=== PATIENT | female | born 1955 | race Caucasian/White ===

== ENCOUNTER → 2017-05-06 07:24 | Outpatient (CLI) | payer BC, SELFPAY ==
[2017-05-06 10:22] LABS: Absolute Lymphocyte Count 1.35 X10^3/ul (0.83-4.51); Absolute Neutrophil Count 1.5 X10^3/uL (2.0-7.7); Basophil# 0.05 X10^3/uL; Basophil% 1.5 % (0-1); Eosinophil# 0.16 X10^3/uL; Eosinophils% 4.8 % (0-5); Hematocrit 44.5 % (37-47); Hemoglobin 15.1 g/dl (12.0-15.0); Lymphocyte # 1.35 X10^3/ul (4.0); Lymphocyte % 40.5 % (19-41); Mean Corp Hgb Conc 33.9 g/gl (32-36); Mean Corpuscular Hgb 29.5 pg (27.0-32.0); Mean Corpuscular Volume 87.1 fL (81-99); Mean Platelet Vol. 10.3 fl (6.2-12.0); Monocyte# 0.27 X10^3/uL; Monocyte% 8.1 % (0-10); Neutrophil # 1.49 X10^3/uL (2.7-7.7); Neutrophil % 44.8 % (47-70); Platelet Count 262 K/mm3 (150-450); RBC Distribution Width CV 12.7 % (11.6-14.6); RBC Distribution Width SD 39.4 fl (35.1-43.9); Red Blood Count 5.11 M/mm3 (4.2-5.4); White Blood Count 3.3 K/mm3 (4.4-11.0)
[2017-05-06 10:23] LABS: POSITIVE COUNT NO; POSITIVE DIFFERENTIAL NO; POSITIVE MORPHOLOGY NO
[2017-05-06 11:13] LABS: Albumin, Serum 3.6 g/dL (3.2-5.0); BUN 8 mg/dL (7-18); BUN/Creat Ratio 10.6 RATIO (10-20); Creatinine, Serum 0.75 mg/dL (0.55-1.02); EST Glomerular Filtration Rate 83 mL/min (>60); Est Glom Filt Rate - Afr Amer 101 mL/min (>60); Glucose 80 mg/dL (74-106); Protein, Total 6.9 g/dL (6.4-8.2)
[2017-05-06 11:14] LABS: ALB/GLOB Ratio 1.1 RATIO (0.9-2.4); AST(SGOT) 17 U/L (15-37); Alanine Aminotransfer ALT/SGPT 27 U/L (13-56); Alkaline Phosphatase 104 U/L (45-117); Anion Gap 6 (5-15); Calcium,Total 8.6 mg/dL (8.5-10.1); Chloride 103 mmol/L (98-107); Cholesterol 181 mg/dL (200); Globulin 3.3 g/dL (2.2-4.2); High Density Lipoprotein 62 mg/dL; Potassium 3.8 mmol/L (3.5-5.1); Sodium Level 139 mmol/L (136-145); T4 Free Direct 0.95 ng/dL (0.76-1.46); Thyroid Stim Hormone (TSH) 1.98 uIU/mL (0.358-3.74); Triglycerides 84 mg/dL; Very Low Density Lipoprotein 17 mg/dL (5-40)
== END ==
PROVIDERS: Family Provider Family Medicine; PCP Family Medicine; Visit Provider Family Medicine
DX: R06.00 Dyspnea, unspecified (principal); Z13.220 Encounter for screening for lipoid disorders
CPT/HCPCS: 36415; 80053; 80061; 83880; 84439; 84443; 85025

== ENCOUNTER → 2017-09-12 12:03 | Outpatient (CLI) | payer BC, SELFPAY ==
[2017-09-12 14:23] LABS: Estradiol 16.2 pg/mL
[2017-09-12 14:26] LABS: Progesterone Level 0.24 ng/mL (See Comment); Vitamin D,25 Hydroxy 52.2 ng/mL (29.95-100.01)
== END ==
PROVIDERS: Family Provider Family Medicine; PCP Family Medicine
DX: E55.9 Vitamin D deficiency, unspecified (principal); N95.1 Menopausal and female climacteric states
CPT/HCPCS: 36415; 82306; 82670; 84144; 84403

== ENCOUNTER → 2018-01-26 11:54 | Outpatient (CLI) | payer BC, SELFPAY ==
[2018-01-26 14:19] LABS: Progesterone Level 2.11 ng/mL (See Comment); Vitamin D,25 Hydroxy 80.4 ng/mL (29.95-100.01)
[2018-01-26 14:24] LABS: Estradiol 54.6 pg/mL
== END ==
PROVIDERS: Family Provider Family Medicine; PCP Family Medicine; Referring Provider Specialist; Visit Provider Specialist
DX: N95.1 Menopausal and female climacteric states (principal); E55.9 Vitamin D deficiency, unspecified
CPT/HCPCS: 36415; 82306; 82670; 84144; 84403

== ENCOUNTER → 2018-03-13 12:50 | Outpatient (CLI) | payer BC, SELFPAY ==
[2014-01-24 07:48] VITALS: BMI 23.6
[2018-03-13 14:54] LABS: Free T3 2.1 pg/mL (2.18-3.98); Thyroid Stim Hormone (TSH) 1.23 uIU/mL (0.358-3.74)
== END ==
PROVIDERS: Family Provider Family Medicine; PCP Family Medicine
DX: E02 Subclinical iodine-deficiency hypothyroidism (principal)
CPT/HCPCS: 36415; 84443; 84481

== ENCOUNTER → 2018-09-23 | Outpatient (CLI) | payer BC, SELFPAY ==
--- NOTE | 2018-09-23 13:07 | BI_ITS ---
MAMMOGRAPHY - BILATERAL SCREENING REASON FOR EXAM: Female, 63 years old. Routine annual screening examination. PERTINENT HISTORY: Non-contributory. TECHNIQUE: Digital bilateral breast holland (3D mammographic acquisition) in the CC and MLO projections. 2-D mediolateral oblique (MLO) and craniocaudad (CC) views of both breasts were obtained. CAD: Full Field Digital Mammography with Computer Added Detection was performed. COMPARISON: Comparison is made with prior outside examination dated September 05, 2017. FINDINGS: Breast Composition: The breasts are heterogeneously dense, which may obscure small masses. There are no dominant masses or suspicious calcifications. Stable benign-appearing bilateral axillary lymph nodes. No other significant abnormalities are identified. There has been no significant change since the prior study. BI/SCREEN MAMM (CAD) W/HOLLAND BILAT IMPRESSION: Stable bilateral screening mammogram. Yearly follow-up mammogram recommended. (A) ASSESSMENT CATEGORY: BIRADS Category 1: Negative. A letter regarding these results will be sent to the patient by the facility within 30 days. Approximately 10% of breast cancers are not detected by mammography. A normal mammogram should not delay biopsy of a clinically suspicious abnormality. [id number] Electronically Signed: Vin Lucas, at 13:57 EDT , Service support ,
== END | disposition home or self-care (01) ==
LOC: OPBI 13:04
PROVIDERS: Family Provider Family Medicine; PCP Family Medicine; Referring Provider Specialist; Visit Provider Specialist
DX: Z12.31 Encounter for screening mammogram for malignant neoplasm of breast (principal)
CPT/HCPCS: 77063; 77067

== ENCOUNTER → 2018-11-19 | Outpatient (CLI) | payer BC, SELFPAY ==
[2018-11-19 12:18] LABS: Absolute Lymphocyte Count 1.24 X10^3/uL (0.83-4.51); Absolute Neutrophil Count 2.1 X10^3/uL (2.0-7.7); Basophil# 0.04 X10^3/uL; Eosinophil# 0.15 X10^3/uL; Eosinophils% 3.9 % (0-5); Hematocrit 43.3 % (37-47); Hemoglobin 14.2 g/dL (12.0-15.0); Lymphocyte # 1.24 X10^3/ul (4.0); Lymphocyte % 31.9 % (19-41); Mean Corp Hgb Conc 32.8 g/dL (32-36); Mean Corpuscular Hgb 28.9 pg (27.0-32.0); Mean Platelet Vol. 9.6 fl (6.2-12.0); Monocyte# 0.34 X10^3/uL; Monocyte% 8.7 % (0-10); NRBC Flagged by Analyzer 0 % (0-5); Neutrophil # 2.12 X10^3/uL (2.7-7.7); Neutrophil % 54.5 % (47-70); Platelet Count 267 K/mm3 (150-450); RBC Distribution Width CV 12.5 % (11.6-14.6); RBC Distribution Width SD 40.4 fl (35.1-43.9); Red Blood Count 4.92 M/mm3 (4.2-5.4); White Blood Count 3.9 K/mm3 (4.4-11.0)
[2018-11-19 12:47] LABS: Vitamin D,25 Hydroxy 43.7 ng/mL (29.95-100.01)
[2018-11-19 12:57] LABS: Thyroid Stim Hormone (TSH) 1.45 uIU/mL (0.358-3.74)
== END | disposition home or self-care (01) ==
LOC: BFHLAB 10:32
PROVIDERS: Family Provider Family Medicine; PCP Family Medicine; Visit Provider Family Medicine
DX: E03.9 Hypothyroidism, unspecified (principal); E55.9 Vitamin D deficiency, unspecified; F43.20 Adjustment disorder, unspecified; R53.83 Other fatigue
CPT/HCPCS: 36415; 82306; 84443; 85025

== ENCOUNTER → 2019-09-30 17:45 | Outpatient (CLI) | payer BC, SELFPAY | PROVIDERS: PCP Family Medicine; Referring Provider Family Medicine; Visit Provider Family Medicine | DX: Z20.828 Contact with and (suspected) exposure to other viral communicable diseases (principal) | CPT/HCPCS: 87635; G2023; U0003 ==

== ENCOUNTER → 2019-11-15 15:59 | Outpatient (CLI) | payer BC, SELFPAY ==
[2014-01-24 07:48] VITALS: BMI 23.6
--- NOTE | 2019-11-15 16:02 | BI_ITS ---
MAMMOGRAPHY - BILATERAL SCREENING REASON FOR EXAM: Female, 64 years old. Routine annual screening examination. PERTINENT HISTORY: Non-contributory. TECHNIQUE: Digital bilateral breast holland (3D mammographic acquisition) in the CC and MLO projections. 2-D mediolateral oblique (MLO) and craniocaudad (CC) views of both breasts were obtained. CAD: Full Field Digital Mammography with Computer Added Detection was performed. COMPARISON: Comparison is made with prior examination dated 09/23/2018. FINDINGS: Breast Composition: The breasts are heterogeneously dense, which may obscure small masses. There are no dominant masses or suspicious calcifications. Stable small benign appearing bilateral axillary lymph nodes. No other significant abnormalities are identified. There has been no significant change since the prior study. BI/SCREEN MAMM (CAD) W/HOLLAND BILAT IMPRESSION: Stable bilateral screening mammogram. Yearly follow-up mammogram recommended. (A) ASSESSMENT CATEGORY: BIRADS Category 2: Benign. A letter regarding these results will be sent to the patient by the facility within 30 days. Approximately 10% of breast cancers are not detected by mammography. A normal mammogram should not delay biopsy of a clinically suspicious abnormality. [id number] Electronically Signed: Vin Lucas, at 8:20 EDT , Service support ,
== END ==
PROVIDERS: PCP Family Medicine; Referring Provider Specialist; Visit Provider Specialist
DX: Z12.31 Encounter for screening mammogram for malignant neoplasm of breast (principal)
CPT/HCPCS: 77063; 77067

== ENCOUNTER → 2021-03-05 14:11 | Outpatient (CLI) | payer MEDICARE, SELFPAY | PROVIDERS: PCP Family Medicine; Referring Provider Specialist; Visit Provider Specialist | DX: Z12.31 Encounter for screening mammogram for malignant neoplasm of breast (principal) ==

== ENCOUNTER → 2021-03-19 14:12 | Outpatient (CLI) | payer MEDICARE, SELFPAY ==
--- NOTE | 2021-03-19 14:14 | BI_ITS ---
MAMMOGRAPHY - BILATERAL SCREENING 3-D TOMOSYNTHESIS REASON FOR EXAM: Female, 66 years old. SCREENING PERTINENT HISTORY: No significant family history. TECHNIQUE: 2-D mammograms and 3-D Tomosynthesis of the breast (s) were performed. CAD was performed. COMPARISON: 11/15/2019 FINDINGS: The breast composition is heterogeneously dense that can obscure small breast masses. Scattered benign calcifications are seen. No dense spiculated masses or suspicious microcalcifications are identified. No architectural distortion is identified. There is no skin thickening or retraction. There has been no significant change since the prior study. BI/SCRN MAMM (CAD)W/HOLLAND BILAT IMPRESSION: No mammographic signs of malignancy. Routine yearly mammograms recommended. ASSESSMENT CATEGORY: BIRADS Category 1: Negative. A letter regarding these results will be sent to the patient by the facility within 30 days. FOLLOW UP RECOMMENDATION: Yearly follow up mammogram recommended. (A) Approximately 10% of breast cancers are not detected by mammography. A normal mammogram should not delay biopsy of a clinically suspicious abnormality. Electronically Signed: Travis Gonzalez MD at 15:04 EST Tel , Service support ,
== END ==
PROVIDERS: PCP Family Medicine; Referring Provider Specialist; Visit Provider Specialist
DX: Z12.31 Encounter for screening mammogram for malignant neoplasm of breast (principal)
CPT/HCPCS: 77063; 77067

== ENCOUNTER → 2021-09-18 | Outpatient (CLI) | payer MEDICARE, SELFPAY ==
[2021-09-18 18:38] LABS: ALB/GLOB Ratio 1.2 RATIO (0.9-2.4); AST(SGOT) 15 U/L (15-37); Alanine Aminotransfer ALT/SGPT 17 U/L (13-56); Albumin, Serum 3.7 g/dL (3.2-5.0); Alkaline Phosphatase 96 U/L (45-117); Anion Gap 7 (5-15); BUN 6 mg/dL (7-18); BUN/Creat Ratio 7.3 RATIO (10-20); CRP < 2.90 mg/L (0.0-3.0); Chloride 101 mmol/L (98-107); Creatinine, Serum 0.82 mg/dL (0.55-1.02); EST Glomerular Filtration Rate 74 mL/min (>60); Est Glom Filt Rate - Afr Amer 90 mL/min (>60); Globulin 3.1 g/dL (2.2-4.2); Glucose 85 mg/dL (74-106); Potassium 3.4 mmol/L (3.5-5.1); Protein, Total 6.8 g/dL (6.4-8.2); Sodium Level 137 mmol/L (136-145)
[2021-09-18 19:14] LABS: Erythrocyte Sedimentation Rate 5 mm/hr (0-30)
[2021-09-20 18:08] LABS: Endomysial Antibody IgA Negative (Negative)
[2021-09-21 10:04] LABS: Immunoglobulin A 177 mg/dL (87-352); t-Transglutaminase IgA <2 U/mL (0-3)
== END | disposition home or self-care (01) ==
LOC: MTLAB 15:45
PROVIDERS: PCP Family Medicine; Referring Provider Internal Medicine Gastroenterology; Visit Provider Internal Medicine Gastroenterology
DX: R19.7 Diarrhea, unspecified (principal)
CPT/HCPCS: 36415; 80053; 82784; 83516; 85652; 86140; 86255

== ENCOUNTER → 2021-09-19 | Outpatient (CLI) | payer MEDICARE, SELFPAY ==
[2021-09-26 09:34] LABS: Calprotectin, Stool 57 ug/g (0-120)
== END | disposition home or self-care (01) ==
LOC: LABSPEC 13:30
PROVIDERS: PCP Family Medicine; Referring Provider Internal Medicine Gastroenterology; Visit Provider Internal Medicine Gastroenterology
DX: R19.7 Diarrhea, unspecified (principal)
CPT/HCPCS: 83993

== ENCOUNTER → 2022-03-06 | Outpatient (CLI) | payer MEDICARE, SELFPAY ==
--- NOTE | 2022-03-06 12:19 | BI_ITS ---
MAMMOGRAPHY - BILATERAL SCREENING REASON FOR EXAM: Female, 67 years old. Routine annual screening examination. PERTINENT HISTORY: Non-contributory. TECHNIQUE: Digital bilateral breast holland (3D mammographic acquisition) in the CC and MLO projections. 2-D mediolateral oblique (MLO) and craniocaudad (CC) views of both breasts were obtained. CAD: Full Field Digital Mammography with Computer Added Detection was performed. COMPARISON: Comparison is made with prior study 03/19/2021 and 11/15/2019. FINDINGS: Breast Composition: The breasts are heterogeneously dense, which may obscure small masses. There are no dominant masses or suspicious calcifications. No other significant abnormalities are identified. There has been no significant change since the prior study. BI/SCRN MAMM (CAD)W/HOLLAND BILAT IMPRESSION: Stable bilateral screening mammogram. Yearly follow-up mammogram recommended. (A) ASSESSMENT CATEGORY: BIRADS Category 1: Negative. A letter regarding these results will be sent to the patient by the facility within 30 days. Approximately 10% of breast cancers are not detected by mammography. A normal mammogram should not delay biopsy of a clinically suspicious abnormality. [id number] Electronically Signed: Vin Lucas MD at 13:17 EST ,
== END | disposition home or self-care (01) ==
LOC: OPBI 12:18
PROVIDERS: PCP Family Medicine; Visit Provider Nurse Practitioner Women's Health
DX: Z12.31 Encounter for screening mammogram for malignant neoplasm of breast (principal)
CPT/HCPCS: 77063; 77067

== ENCOUNTER → 2022-09-06 | Outpatient (CLI) | payer MEDICARE, SELFPAY ==
[2022-09-06 10:09] LABS: Absolute Lymphocyte Count 1.45 X10^3/uL (0.83-4.51); Basophil# 0.05 X10^3/uL; Basophil% 1.2 % (0-1); Hematocrit 46.7 % (37-47); Hemoglobin 15.8 g/dL (12.0-15.0); Lymphocyte # 1.45 X10^3/ul (0.83-4.51); Lymphocyte % 36.2 % (19-41); Mean Corp Hgb Conc 33.8 g/dL (32-36); Mean Corpuscular Hgb 29.8 pg (27.0-32.0); Mean Corpuscular Volume 88.1 fL (81-99); Mean Platelet Vol. 9.2 fl (6.2-12.0); Monocyte# 0.32 X10^3/uL; NRBC Flagged by Analyzer 0 % (0-5); Neutrophil # 1.99 X10^3/uL (2.7-7.7); Neutrophil % 49.6 % (47-70); Platelet Count 334 K/mm3 (150-450); RBC Distribution Width CV 11.9 % (11.6-14.6); RBC Distribution Width SD 38.3 fl (35.1-43.9)
[2022-09-06 10:32] LABS: ALB/GLOB Ratio 1.2 RATIO (0.9-2.4); AST(SGOT) 18 U/L (15-37); Alanine Aminotransfer ALT/SGPT 24 U/L (13-56); Alkaline Phosphatase 103 U/L (45-117); Anion Gap 10 (5-15); BUN 9 mg/dL (7-18); BUN/Creat Ratio 10.8 RATIO (10-20); Calcium,Total 9.4 mg/dL (8.5-10.1); Chloride 95 mmol/L (98-107); Cholesterol 209 mg/dL (200); Creatinine, Serum 0.83 mg/dL (0.55-1.02); EST Glomerular Filtration Rate 73 mL/min (>60); Est Glom Filt Rate - Afr Amer 88 mL/min (>60); Globulin 3.4 g/dL (2.2-4.2); Glucose 81 mg/dL (74-106); High Density Lipoprotein 65 mg/dL; Potassium 3.7 mmol/L (3.5-5.1); Protein, Total 7.4 g/dL (6.4-8.2); Sodium Level 133 mmol/L (136-145); Triglycerides 167 mg/dL; Very Low Density Lipoprotein 33 mg/dL (5-40)
[2022-09-06 10:56] LABS: Vitamin D,25 Hydroxy 46.9 ng/mL
== END | disposition home or self-care (01) ==
LOC: MTLAB 07:14
PROVIDERS: PCP Nurse Practitioner Family; Referring Provider Nurse Practitioner Family; Visit Provider Nurse Practitioner Family
DX: Z00.00 Encounter for general adult medical examination without abnormal findings (principal); I10 Essential (primary) hypertension; E55.9 Vitamin D deficiency, unspecified; E78.5 Hyperlipidemia, unspecified
CPT/HCPCS: 36415; 80053; 80061; 82306; 85025

== ENCOUNTER → 2023-02-25 | Outpatient (CLI) | payer MEDICARE, SELFPAY ==
--- NOTE | 2023-02-25 14:44 | BI_ITS ---
MAMMOGRAPHY - BILATERAL SCREENING REASON FOR EXAM: Female, 68 years old. Routine annual screening examination. PERTINENT HISTORY: Non-contributory. TECHNIQUE: Digital bilateral breast holland (3D mammographic acquisition) in the CC and MLO projections. 2-D mediolateral oblique (MLO) and craniocaudad (CC) views of both breasts were obtained. CAD: Full Field Digital Mammography with Computer Added Detection was performed. COMPARISON: Comparison is made with prior study dated March 06, 2022 and March 19, 2021 FINDINGS: Breast Composition: The breasts are heterogeneously dense, which may obscure small masses. There are no dominant masses or suspicious calcifications. No other significant abnormalities are identified. There has been no significant change since the prior study. BI/SCRN MAMM (CAD)W/HOLLAND BILAT IMPRESSION: Stable bilateral screening mammogram. Yearly follow-up mammogram recommended. (A) ASSESSMENT CATEGORY: BIRADS Category 1: Negative. A letter regarding these results will be sent to the patient by the facility within 30 days. Approximately 10% of breast cancers are not detected by mammography. A normal mammogram should not delay biopsy of a clinically suspicious abnormality. [id number] Electronically Signed: Vin Lucas MD at 15:40 EST ,
== END | disposition home or self-care (01) ==
LOC: OPBI 14:43
PROVIDERS: PCP Nurse Practitioner Family; Referring Provider Nurse Practitioner Women's Health; Visit Provider Nurse Practitioner Women's Health
DX: Z12.31 Encounter for screening mammogram for malignant neoplasm of breast (principal)
CPT/HCPCS: 77063; 77067

== ENCOUNTER → 2023-07-30 | Outpatient (CLI) | payer MEDICARE, SELFPAY ==
[2023-07-30 10:23] LABS: Absolute Lymphocyte Count 1.48 X10^3/uL (0.83-4.51); Basophil# 0.04 X10^3/uL; Eosinophil# 0.16 X10^3/uL; Hematocrit 40.9 % (37-47); Hemoglobin 14.1 g/dL (12.0-15.0); Lymphocyte # 1.48 X10^3/ul (0.83-4.51); Lymphocyte % 36.8 % (19-41); Mean Corp Hgb Conc 34.5 g/dL (32-36); Mean Corpuscular Hgb 29.4 pg (27.0-32.0); Mean Corpuscular Volume 85.4 fL (81-99); Mean Platelet Vol. 9.4 fl (6.2-12.0); Monocyte# 0.38 X10^3/uL; Monocyte% 9.5 % (0-10); NRBC Flagged by Analyzer 0 % (0-5); Neutrophil # 1.96 X10^3/uL (2.7-7.7); Neutrophil % 48.7 % (47-70); Platelet Count 382 K/mm3 (150-450); RBC Distribution Width CV 11.7 % (11.6-14.6); RBC Distribution Width SD 36.6 fl (35.1-43.9); Red Blood Count 4.79 M/mm3 (4.2-5.4)
[2023-07-30 11:29] LABS: ALB/GLOB Ratio 1.2 RATIO (0.9-2.4); AST(SGOT) 23 U/L (15-37); Alanine Aminotransfer ALT/SGPT 36 U/L (13-56); Albumin, Serum 3.7 g/dL (3.2-5.0); Alkaline Phosphatase 90 U/L (45-117); Anion Gap 8 (5-15); BUN 7 mg/dL (7-18); BUN/Creat Ratio 8.2 RATIO (10-20); Chloride 95 mmol/L (98-107); Cholesterol 153 mg/dL (200); Creatinine, Serum 0.86 mg/dL (0.55-1.02); EST Glomerular Filtration Rate 70 mL/min (>60); Est Glom Filt Rate - Afr Amer 85 mL/min (>60); Globulin 3.1 g/dL (2.2-4.2); Glucose 88 mg/dL (74-106); High Density Lipoprotein 47 mg/dL; Potassium 3.4 mmol/L (3.5-5.1); Protein, Total 6.8 g/dL (6.4-8.2); Sodium Level 133 mmol/L (136-145); Triglycerides 101 mg/dL; Very Low Density Lipoprotein 20 mg/dL (5-40)
== END | disposition home or self-care (01) ==
LOC: MTLAB 07:52
PROVIDERS: PCP Nurse Practitioner Family; Referring Provider Nurse Practitioner Family; Visit Provider Nurse Practitioner Family
DX: I10 Essential (primary) hypertension (principal); E55.9 Vitamin D deficiency, unspecified; E78.5 Hyperlipidemia, unspecified
CPT/HCPCS: 36415; 80053; 80061; 82306; 85025

== ENCOUNTER → 2024-03-01 | Outpatient (CLI) | payer MEDICARE, SELFPAY ==
--- NOTE | 2024-03-01 12:13 | BI_ITS ---
MAMMOGRAPHY - BILATERAL SCREENING REASON FOR EXAM: Female, 69 years old. Routine annual screening examination. PERTINENT HISTORY: Non-contributory. TECHNIQUE: Digital bilateral breast holland (3D mammographic acquisition) in the CC and MLO projections. 2-D mediolateral oblique (MLO) and craniocaudad (CC) views of both breasts were obtained. CAD: Full Field Digital Mammography with Computer Added Detection was performed. COMPARISON: Comparison is made with prior study dated February 25, 2023 and March 06, 2022. FINDINGS: Breast Composition: The breasts are heterogeneously dense, which may obscure small masses. There are no dominant masses or suspicious calcifications. No other significant abnormalities are identified. There has been no significant change since the prior study. BI/SCRN MAMM (CAD)W/HOLLAND BILAT IMPRESSION: Stable bilateral screening mammogram. Yearly follow-up mammogram recommended. (A) ASSESSMENT CATEGORY: BIRADS Category 1: Negative. A letter regarding these results will be sent to the patient by the facility within 30 days. Approximately 10% of breast cancers are not detected by mammography. A normal mammogram should not delay biopsy of a clinically suspicious abnormality. [id number] Electronically Signed: Vin Lucas MD at 13:28 EST ,
== END | disposition home or self-care (01) ==
PROVIDERS: PCP Nurse Practitioner Family; Referring Provider Nurse Practitioner Family; Visit Provider Nurse Practitioner Family
DX: Z12.31 Encounter for screening mammogram for malignant neoplasm of breast (principal)
CPT/HCPCS: 77063; 77067

== ENCOUNTER → 2024-08-20 | Outpatient (CLI) | payer MEDICARE, SELFPAY ==
[2024-08-20 10:54] LABS: Absolute Lymphocyte Count 1.72 X10^3/uL (0.83-4.51); Absolute Neutrophil Count 8.1 X10^3/uL (2.0-7.7); Basophil# 0.02 X10^3/uL; Basophil% 0.2 % (0-1); Hematocrit 43.1 % (37-47); Hemoglobin 15.1 g/dL (12.0-15.0); Lymphocyte # 1.72 X10^3/ul (0.83-4.51); Lymphocyte % 16.3 % (19-41); Mean Corpuscular Hgb 30.4 pg (27.0-32.0); Mean Corpuscular Volume 86.7 fL (81-99); Mean Platelet Vol. 9.6 fl (6.2-12.0); Monocyte# 0.64 X10^3/uL; Monocyte% 6.1 % (0-10); NRBC Flagged by Analyzer 0 % (0-5); Platelet Count 438 K/mm3 (150-450); RBC Distribution Width CV 11.9 % (11.6-14.6); RBC Distribution Width SD 37.8 fl (35.1-43.9); Red Blood Count 4.97 M/mm3 (4.2-5.4); White Blood Count 10.5 K/mm3 (4.4-11.0)
[2024-08-20 11:35] LABS: ALB/GLOB Ratio 1.5 RATIO (0.9-2.4); AST(SGOT) 15 U/L (<=31); Alanine Aminotransfer ALT/SGPT 13 U/L (<=34); Albumin, Serum 4.4 g/dL (3.4-4.8); Alkaline Phosphatase 91 U/L (35-104); Anion Gap 11 (5-15); BUN 8 mg/dL (4-19); BUN/Creat Ratio 11.6 RATIO (10-20); Calcium,Total 9.8 mg/dL (7.6-11.0); Carbon Dioxide 27.2 mmol/L (21.0-32.0); Chloride 91 mmol/L (98-108); Cholesterol 199 mg/dL (<=200); Creatinine, Serum 0.73 mg/dL (0.70-1.20); EST Glomerular Filtration Rate 89 (>60); Globulin 2.9 g/dL (2.2-4.2); Glucose 76 mg/dL (70-99); High Density Lipoprotein 65 mg/dL; Low Density Lipoprotein Calc. 112 mg/dL; Potassium 3.7 mmol/L (3.3-5.1); Protein, Total 7.4 g/dL (5.9-8.4); Sodium Level 129 mmol/L (133-145); Triglycerides 114 mg/dL; Very Low Density Lipoprotein 23 mg/dL (5-40); Vitamin D,25 Hydroxy 54.4 ng/mL (30-100); cholesterol:hdl ratio screen 3.08
== END | disposition home or self-care (01) ==
LOC: MTLAB 07:13
PROVIDERS: PCP Nurse Practitioner Family; Referring Provider Nurse Practitioner Family; Visit Provider Nurse Practitioner Family
DX: I10 Essential (primary) hypertension (principal); E55.9 Vitamin D deficiency, unspecified; E78.5 Hyperlipidemia, unspecified
CPT/HCPCS: 36415; 80053; 80061; 82306; 85025

== ENCOUNTER → 2024-08-23 | Outpatient (CLI) | payer MEDICARE, SELFPAY ==
--- NOTE | 2024-08-23 11:24 | RAD_ITS ---
EXAM: XR Chest, 2 Views CLINICAL INDICATION: SOB TECHNIQUE: Frontal and lateral views of the chest. COMPARISON: No relevant prior studies available. FINDINGS: LUNGS AND PLEURAL SPACES: Unremarkable. No consolidation. No pneumothorax. HEART: Unremarkable. No cardiomegaly. MEDIASTINUM: Unremarkable. Normal mediastinal contour. BONES/JOINTS: Unremarkable. No acute fracture. RAD/Chest PA and Lateral IMPRESSION: No acute cardiopulmonary process. Reading Location: [facility]
[2024-08-23 15:48] LABS: Internal QC Validated? YES +Cl - CLEAR BKGD; Monotest Negative (Negative)
[2024-08-23 15:49] LABS: Record Kit Lot#, Mono 13241430
== END | disposition home or self-care (01) ==
PROVIDERS: PCP Nurse Practitioner Family; Referring Provider Nurse Practitioner Family; Visit Provider Nurse Practitioner Family
DX: R06.02 Shortness of breath (principal); R53.83 Other fatigue; N39.0 Urinary tract infection, site not specified
CPT/HCPCS: 36415; 71046; 86308; 86617; 87086; 87088

== ENCOUNTER → 2024-09-06 | Outpatient (CLI) | payer MEDICARE, SELFPAY ==
[2024-09-06 12:46] LABS: Anion Gap 9 (5-15); BUN 9 mg/dL (4-19); Calcium,Total 9.2 mg/dL (7.6-11.0); Carbon Dioxide 26.6 mmol/L (21.0-32.0); Chloride 97 mmol/L (98-108); Creatinine, Serum 0.72 mg/dL (0.70-1.20); EST Glomerular Filtration Rate 91 (>60); Glucose 90 mg/dL (70-99); Potassium 4.4 mmol/L (3.3-5.1); Sodium Level 133 mmol/L (133-145)
== END | disposition home or self-care (01) ==
LOC: BFHLAB 10:10
PROVIDERS: PCP Nurse Practitioner Family; Visit Provider Nurse Practitioner Family
DX: E87.1 Hypo-osmolality and hyponatremia (principal)
CPT/HCPCS: 36415; 80048

== ENCOUNTER 2024-09-09 16:16 | Outpatient (CLI) | payer MEDICARE, SELFPAY ==
[2024-09-09 17:44] LABS: Erythrocyte Sedimentation Rate 1 mm/hr (0-30)
[2024-09-09 17:46] LABS: Absolute Lymphocyte Count 1.37 X10^3/uL (0.83-4.51); Absolute Neutrophil Count 4.6 X10^3/uL (2.0-7.7); Basophil# 0.04 X10^3/uL; Basophil% 0.6 % (0-1); Eosinophils% 1.5 % (0-5); Hematocrit 41.5 % (37-47); Hemoglobin 14.2 g/dL (12.0-15.0); Lymphocyte # 1.37 X10^3/ul (0.83-4.51); Mean Corp Hgb Conc 34.2 g/dL (32-36); Mean Corpuscular Hgb 29.8 pg (27.0-32.0); Mean Corpuscular Volume 87.2 fL (81-99); Mean Platelet Vol. 9.2 fl (6.2-12.0); Monocyte# 0.41 X10^3/uL; Monocyte% 6.3 % (0-10); NRBC Flagged by Analyzer 0 % (0-5); Neutrophil # 4.58 X10^3/uL (2.7-7.7); Neutrophil % 70.3 % (47-70); Platelet Count 374 K/mm3 (150-450); RBC Distribution Width SD 38.7 fl (35.1-43.9); Red Blood Count 4.76 M/mm3 (4.2-5.4); White Blood Count 6.5 K/mm3 (4.4-11.0)
[2024-09-09 19:00] LABS: Anion Gap 11 (5-15); BUN 11 mg/dL (4-19); BUN/Creat Ratio 13.7 RATIO (10-20); Calcium,Total 9.1 mg/dL (7.6-11.0); Chloride 96 mmol/L (98-108); Creatinine, Serum 0.81 mg/dL (0.70-1.20); EST Glomerular Filtration Rate 80 (>60); Glucose 139 mg/dL (70-99); Potassium 3.9 mmol/L (3.3-5.1); Sodium Level 132 mmol/L (133-145)
[2024-09-09 19:04] LABS: CRP < 3.00 mg/L (0.0-3.0); Estradiol < 5.0 pg/mL; Follicle Stimulating Hormone 58.1 mIU/mL; Luteinizing Hormone 20.2 mIU/mL
[2024-09-11 04:07] LABS: PROGESTERONE 0.1 ng/mL (.)
== END 2024-09-09 23:59 | disposition home or self-care (01) ==
LOC: MTLAB 16:17
PROVIDERS: PCP Nurse Practitioner Family; Referring Provider Nurse Practitioner Family; Visit Provider Nurse Practitioner Family
DX: E87.1 Hypo-osmolality and hyponatremia (principal)
CPT/HCPCS: 36415; 80048; 82670; 83001; 83002; 84144; 84443; 85025; 85652; 86140

== ENCOUNTER → 2024-12-06 | Outpatient (CLI) | payer MEDICARE, SELFPAY ==
--- NOTE | 2024-12-06 16:31 | RAD_ITS ---
PROCEDURE: KNEE 4 OR MORE VIEWS 12/06/2024 REASON FOR EXAM: PAIN TECHNIQUE: Procedure Code: RADKN Modality: DX Procedure: KNEE 4 OR MORE VIEWS Laterality: Left COMPARISON: None FINDINGS: Bones: No fracture Joints: Normal Effusion: Clear Soft tissues: Soft tissue swelling. Other: No foreign body RAD/Knee 4 or More Views IMPRESSION: No acute abnormality Reading Location: [id number]
== END | disposition home or self-care (01) ==
LOC: MTRAD 16:30
PROVIDERS: PCP Nurse Practitioner Family; Referring Provider Nurse Practitioner Family; Visit Provider Nurse Practitioner Family
DX: M25.562 Pain in left knee (principal)
CPT/HCPCS: 73564

== ENCOUNTER 2024-12-09 09:16 | Outpatient (RCR) | payer MEDICARE, SELFPAY ==
--- NOTE | 2024-12-09 10:34 | HP.PTEVAL_ITS ---
Patient's Visit Information Visit Information Visit Information: VIRGINIA NELSON is a 69 year old F referred to Physical Therapy by [facility] with a diagnosis of LEFT KNEE PAIN. Date of Evaluation: 12/09/24 Physical Therapist: Joshua Rowan PT, Cert MDT, OCS Visit Plan Frequency: 2x /Week Duration: 4 Weeks Plan: PT GARFIELD TRY EX'S AT HOME WILL CALL BACK NEED THEN INTERVENTIONS STRENGTHENING QUADS/HAMS/HIP ,FUNCTIONAL STRENGTHENING ,LE FLEXABILITY AND MODALITIES PRN Subjective Subjective: This 69 y/o female presents to physical therapy with left knee pain. Patient has left knee pain for [address] recommended PT had x-rays -. No medication. Knee pain located posterior knee. Aggravating factors squatting ,kneeling and occasional stairs.Alleviating factors rest ,cold. Denies paresthesia/tingling -. Pain interferes with knee pain. Patient has no trauma or injury. Patient has had left hip pain prior PT. Patient condition affects QOL and function. Patient goals to decrease pain SOCIAL: LEISURE: Brding ,gardening VOCATION: RETIRED Pain Left: Pain Intensity (Out of 10): 3 Pain Intensity Range: 5 Objective Objective: POSTURE: mild forward posture GAIT: reciprocal pattern PALAPTION: Posterior knee ,lateral joint line AROM: supine knee flexion 0-135 degrees MMT: quads/hams 4/5 ,hip flexion 4/5 ,hip abduction 4/5 ,ankle 4/5 FLEXABILITY: hamstrings min tight Special Tests L Knee Joya - Meniscus: Negative L Knee Elizabeth - ACL: Negative L Knee Posterior Drawer - PCL: Negative L Knee Valgus - MCL: Negative L Knee Varus - LCL: Negative L Knee Patellar Apprehension - PFS: Negative L Knee Patellar Grind - PFS: Negative Balance/Special Test Scores Lower Extremity Functional Score: 51 Goals Goal 1:: Patient to be I with HEP for knee Goal Time Frame: 4-6 Weeks Goal 2:: Patient to demonstrate 70% improvement with less pain and improved function Goal Time Frame: 4-6 Weeks Goal 3:: Patient to improve LFES score by 45 point to improve QOL and function Goal Time Frame: 4-6 Weeks Goal 4:: Patient to improve ability to squat /kneel with out pain Goal Time Frame: 4-6 Weeks Rehabilitation Potential Physical Therapy Diagnosis: This patient has left knee pain with squatting/kneeling ,+ tenderness joint line and posterior knee with mild we akness thus benefit from skilled PT Rehabilitation Potential: Good Anticipated Interventions Patient/Client Instruction: Educate patient on: Condition and Plan of Care For the Purpose of:: To decrease pain, To improve muscle performance and motor function, To improve ability to perform ADL's, To increase tolerance to activity/condition/position, To improve ability of physical actions for home/community/work/leisure, To improve health of tissue, To decrease soft tissue restriction, To improve endurance, To improve balance and To improve tolerance to ADL's Therapeutic Exercise to Include: Strength training, Endurance training, Balance training, Flexibilty training and Active ROM Comment: QUADS/HAMS/HIP For the Purpose of:: To decrease pain, To increase ROM, To improve muscle performance and motor function, To improve ability to perform ADL's, To improve ability of physical actions for home/community/work/leisure, To decrease soft tissue restriction, To increase flexibility/ROM and To improve tolerance to ADL's TENS: Yes IF ES: Yes Cryotherapy (ice pack, ice massage): Yes Ultrasound (thermal/non thermal): Yes For the Purpose of:: To decrease pain, To decrease swelling/inflammation, To improve nutrient delivery to tissue and To increase oxygenation perfusion Text: Thank you for the opportunity to evaluate your patient. For Medicare and Medicare HMO plans, please review the plan of care and approve it. It will need to be FAXED BACK to us at [phone] for Medicare purposes. For Medicare only, by signing this I certify the plan of care. Please let me know if there are questions or concerns regarding this plan of care. Physician Signature: Date:
== END 2024-12-09 19:00 | disposition home or self-care (01) ==
LOC: PT 09:16
PROVIDERS: PCP Nurse Practitioner Family; Referring Provider Nurse Practitioner Family; Visit Provider Nurse Practitioner Family
DX: M25.562 Pain in left knee (principal)
CPT/HCPCS: 97110; 97161

== ENCOUNTER → 2025-02-03 | Outpatient (CLI) | payer MEDICARE, SELFPAY ==
--- OUTSIDE RECORDS SUMMARY | 2025-02-03 07:34 | XMS RPT_ITS | CCD ---
Author Organization [facility] Care Team Providers Care Co Supervisor [employer] Land[employer] Name Role Phone CHANDRIKA THIBODEAUX Unavailable Unavailable WILL DAVEY Unavailable Unavailable CHANDRIKA THIBODEAUX Unavailable Unavailable WILL DAVEY Unavailable Unavailable Unavailable Primary Care Provider UnavailDARIO Ballard Attending Unavailable Ruperto RECORD FILING CLERK-C, Tosha Primary Care Provider Ruperto RECORD FILING CLERK-C, Tosha Attending Provider [phone] Ruperto RECORD FILING CLERK-C, Tosha Referring Provider Ruperto RECORD FILING CLERK-C, Tosha Primary Care Physician Ruperto RECORD FILING CLERK-C, Tosha Attending Physician Ruperto RECORD FILING CLERK-C, Tosha Referring Provider Ruperto, Tosha Attending Unavailable Ruperto, Tosha Referring Unavailable Ruperto, Tosha Primary Care Unavailable Ruperto, Tosha Attending Unavailable Ruperto, Tosha Referring Unavailable Ruperto, Tosha Primary Care Unavailable Ruperto, Tosha Attending Unavailable Ruperto, Tosah Referring Unavailable Ruperto, Tosha Primary Care Unavailable Ruperto, Tosha Attending Unavailable Ruperto, Tosha Referring Unavailable Ruperto, Tosha Primary Care Unavailable Ruperto, Tosha Attending Unavailable Ruperto, Tosha Primary Care Unavailable Ruperto, Tosha Attending Unavailable Ruperto, Tosha Referring Unavailable Ruperto, Tosha Primary Care Unavailable Ruperto, Tosha Attending Unavailable Ruperto, Tosha Referring Unavailable Ruperto, Tosha Primary Care Unavailable Medications Current Medications Medication Drug Class(es) Dates Sig (Normalized) Sig (Original) amLODIPine 5 mg oral tablet (2 sources) Dihydropyridine Calcium Channel Mina Start: 07-08-19 take 1 tablet by mouth once daily amLODIPine (NORVASC) 5 mg tablet Take 5 mg by mouth once daily. 07/07/2024 Active fluticasone propionate 0.05 mg/actuat metered dose nasal spray (2 sources) Corticosteroid Start: 06-22-19 fluticasone (FLONASE) 50 mcg/actuation nasal spray 06/21/2024 Active hydroCHLOROthiazide 25 mg oral tablet (2 sources) Thiazide Diuretic Start: 07-08-19 take 1 tablet by mouth once daily in the morning hydroCHLOROthiazide 25 mg tablet Take 25 mg by mouth every morning. 07/07/2024 Active lisinopril 20 mg oral tablet (2 sources) Angiotensin Converting Enzyme Inhibitor Start: 07-08-19 take 1 tablet by mouth twice daily lisinopril (ZESTRIL) 20 mg tablet Take 20 mg by mouth two times a day. 07/07/2024 Active nitrofurantoin, macrocrystals 25 mg / nitrofurantoin, monohydrate 75 mg oral capsule (2 sources) Nitrofuran Antibacterial Start: 08-17-19 End: 08-22-19 take 1 capsule by mouth twice daily nitrofurantoin monohydrate and macrocrystal (MACROBID) 100 mg capsule Take 1 capsule by mouth two times a day for 5 days. 10 capsule 08/16/2024 08/21/2024 Active PARoxetine hydrochloride 10 mg oral tablet (2 sources) Serotonin Reuptake Inhibitor Start: 07-08-19 take 1 tablet by mouth once daily PARoxetine (PAXIL) 10 mg tablet Take 10 mg by mouth once daily. 07/07/2024 Active phenazopyridine hydrochloride 200 mg oral tablet (2 sources) Start: 08-17-19 take 1 tablet by mouth every eight hours as needed phenazopyridine (PYRIDIUM) 200 mg tablet Take 1 tablet by mouth three times a day as needed. 6 tablet 08/16/2024 Active Problems Active Problems Problem Classification Problem Date Documented Da te Episodic/Chronic Essential hypertension (1 source) Essential (primary) hypertension; Translations: [Essential (primary) hypertension] Onset: 08-24-2024 Chronic Other non-traumatic joint disorders (1 source) Pain in left knee; Translations: [Pain in left knee] Onset: 12-18-2024 Episodic Urinary tract infections (2 sources) Acute cystitis; Translations: [Acute cystitis with hematuria] Onset: 08-16-2024 08-16-2024 Episodic Past or Other Problems Problem Classification Problem Date Documented Da te Episodic/Chronic Fluid and electrolyte disorders (1 source) Hypo-osmolality and hyponatremia; Translations: [Hypo-osmolality and hyponatremia] Onset: 09-14-2024 Episodic Other lower respiratory disease (1 source) Shortness of breath; Translations: [Shortness of breath] Onset: 08-26-2024 Episodic Other screening for suspected conditions (not mental disorders or infectious disease) (1 source) Encounter for screening mammogram for malignant neoplasm of breast; Translations: [Encounter for screening mammogram for malignant neoplasm of breast] Onset: 04-02-2024 Episodic Results Test Name Value Interpretation Reference Range Facility Inital Evaluation (1) - PTon 12-09-2024 Inital Evaluation (1) - PT [facility] [address] [place] [address] / REHABILITATION SERVICES INITIAL EVALUATION MR#: [id number] Acct: [id number] Name: VIRGINIA RALPH Rep #: [id number] : [id number] 69 From: Joshua Rowan PT, Cert. MD Brian, OCS Referring Dr.: KT Cobos Status: REG R CR Insurance: [facility] SELF PAY INSURANCE Patient's Visit Information Visit Information Visit Information: VIRGINIA RALPH is a 69 year old F referred to Physical Therapy by KT Cobos with a diagnosis of LEFT KNEE PAIN. Date of Evaluation: 12/09/24 Physical Therapist: Joshua Rowan PT, Cert T, OCS Visit Plan Frequency: 2x /Week Duration: 4 Weeks Plan: PT GARFIELD TRY EX'S AT HOME WILL CALL BACK NEED THEN INTERVENTIONS STRENGTHENING QUADS/HAMS/HIP ,FUNCTIONAL STRENGTHENING ,LE FLEXABILITY AND MODALITIES PRN Subjective Subjective: This 69 y/o female presents to physical therapy with left knee pain. Patient has left knee pain for [address] burden PT had x-rays -. No medication. Knee pain located posterior knee. Aggravating factors squatting ,kneeling and occasional stairs.Alleviating factors rest ,cold. Denies paresthesia/tingling -. Pain interferes with knee pain. Patient has no trauma or injury. Patient has had left hip pain prior PT. Patient condition affects QOL and function. Patient goals to decrease pain SOCIAL: LEISURE: Brding ,gardening VOCATION: RETIRED Pain Left: Pain Intensity (Out of 10): 3 Pain Intensity Range: 5 Objective Objective: POSTURE: mild forward posture GAIT: reciprocal pattern PALAPTION: Posterior knee ,lateral joint line AROM: supine knee flexion 0-135 degrees MMT: quads/hams 4/5 ,hip flexion 4/5 ,hip abduction 4/5 ,ankle 4/5 FLEXABILITY: hamstrings min tight Special Tests L Knee Joya - Meniscus: Negative L Knee Elizabeth - ACL: Negative L Knee Posterior Drawer - PCL: Negative L Knee Valgus - MCL: Negative L Knee Varus - LCL: Negative L Knee Patellar Apprehension - PFS: Negative L Knee Patellar Grind - PFS: Negative Balance/Special Test Scores Lower Extremity Functional Score: 51 Goals Goal 1:: Patient to be I with HEP for knee Goal Time Frame: 4-6 Weeks Goal 2:: Patient to demonstrate 70% improvement with less pain and improved function Goal Time Frame: 4-6 Weeks Goal 3:: Patient to improve LFES score by 45 point to improve QOL and function Goal Time Frame: 4-6 Weeks Goal 4:: Patient to improve ability to squat /kneel with out pain Goal Time Frame: 4-6 Weeks Rehabilitation Potential Physical Therapy Diagnosis: This patient has left knee pain with squatting/kneeling ,+ tenderness joint line and posterior knee with mild weakness thus benefit from skilled PT Rehabilitation Potential: Good Anticipated Interventions Patient/Client Instruction: Educate patient on: Condition and Plan of Care For the Purpose of:: To decrease pain, To improve muscle performance and motor function, To improve ability to perform ADL's, To increase tolerance to activity/condition/po sition, To improve ability of physical actions for home/community/work/l eisure, To improve health of tissue, To decrease soft tissue restriction, To improve endurance, To improve balance and To improve tolerance to ADL's Therapeutic Exercise to Include: Strength training, Endurance training, Balance training, Flexibilty training and Active ROM Comment: QUADS/HAMS/HIP For the Purpose of:: To decrease pain, To increase ROM, To improve muscle performance and motor function, To improve ability to perform ADL's, To improve ability of physical actions for home/community/work/l eisure, To decrease soft tissue restriction, To increase flexibility/ROM and To improve tolerance to ADL's TENS: Yes IF ES: Yes Cryotherapy (ice pack, ice massage): Yes Ultrasound (thermal/non thermal): Yes For the Purpose of:: To decrease pain, To decrease swelling/inflammation , To improve nutrient delivery to tissue and To increase oxygenation perfusion Text: Thank you for the opportunity to evaluate your patient. For Medicare and Medicare HMO plans, please review the plan of care and approve it. It will need to be FAXED BACK to us at [phone] for Medicare purposes. For Medicare only, by signing this I certify the plan of care. Please let me know if there are questions or concerns regarding this plan of care. Physician Signature: Date : 12/09/24 1158 CC: RECORD FILING CLERK-C Tosha Hickey JLCaterina Signed Normal [facility] Knee 4 or More Viewson 12-06 Knee 4 or More Views [facility] [address] [place], [place] [id number] Knee 4 or More Views MR#: [id number] Acct: [id number] Name: VIRGINIA RALPH Rep #: [id number] : 1955 F 69 From: Russ Cowan MD PCP: KT Cobos Status: REG CLI Study: Knee 4 or More Views Date of Exam: 12/06/24 Exam# [id number] Ordering Dr: Tosha Hickey PROCEDURE: KNEE 4 OR MORE VIEWS 12/06/2024 REASON FOR EXAM: PAIN TECHNIQUE: Procedure Code: RADKN Modality: DX Procedure: KNEE 4 OR MORE VIEWS Laterality: Left COMPARISON: None FINDINGS: Bones: No fracture Joints: Normal Effusion: Clear Soft tissues: Soft tissue swelling. Other: No foreign body RAD/Knee 4 or More Views IMPRESSION: No acute abnormality Reading Location: [id number] CC: KT Hickey Montessori Paraprofessional: Signed Normal [facility] PROGESTERONE 4317on 09-12-19 PROGESTERONE 0.1 ng/mL Normal . [facility] Comment on above: Order Comment: N Result Comment: Foll icular phase 0.1 - 0.9 Luteal phase 1.8 - 23.9 Ovulation phase 0.1 - 12.0 First trimester 11.0 - 44.3 Second trimester 25.4 - 83.3 Third trimester 58.7 - 214.0 Postmenopausal 0.0 - 0.1 Performed at: - [facility] [id number] Corporate Development Manager: Loi Hernandez PhD, Phone: [phone] Performed By: #### L 500.6546, [id number], L100.0100, L506.1001 #### [facility] [address] [place], [address] Absolute lymphocyte countOrd ered By: Tosha Hickey on 09-09-2024 Lymphocytes Auto (Unsp spec) [#/Vol] 1.37 10*3/uL 0.83-4.51 [facility] Absolute neutrophil countOrd ered By: Tosha Hickey on 09-09-2024 Neutrophils (Bld) [#/Vol] 4.6 10*3/uL 2.0-7.7 [facility] Anion gap in Serum or Plasma Ordered By: Tosha Hickey on 09-09-2024 Anion gap [Moles/Vol] 11 mmol/L 08-[address] [facility] Automated lymphocyte count a s percentage of total leukocytesOrdered By: Tosha Hickey on 09-09-2024 Lymphocytes/100 WBC Auto (Unsp spec) 21.0 % [facility] BUN/creatinine ratioOrdered By: Tosha Hickey on 09-09-2024 Urea nitrogen/Creatinine [Mass ratio] 13.7 mg/mg 01-10 [facility] Basic Metabolic Profile (BMP )on 09-09-2024 BUN/CRE 13.7 RATIO Normal 01-10 [facility] Comment on above: Performed By: #### L 500.4100, L500.4050, L100.0100, L506.1001 #### [facility] [address] [place], [address] GAP 11 Normal 5-15 [facility] Comment on above: Performed By: #### L 500.4100, L500.4050, L100.0100, L506.1001 #### [facility] [address] [place], [address] Potassium [Moles/Vol] 3.9 mmol/L Normal 3.3-5.[address] [facility] Comment on above: Performed By: #### L 500.4100, L500.4050, L100.0100, L506.1001 #### [facility] [address] [place], [address] Basophil percentageOrdered B y: Tosha Hickey on 09-09-2024 Basophils/100 WBC (Bld) 0.6 % 0-1 [facility] CBC W/Diff, Automatedon 08-22 Absolute Lymph 1.37 X10 3/uL Normal 0.83-4.51 [facility] Comment on above: Performed By: #### L 500.4100, L500.4050, L100.0100, L506.1001 #### [facility] [address] [place], [address] Absolute Neut 4.6 X10 3/uL Normal 2.0-7.7 [facility] Comment on above: Performed By: #### L 500.4100, L500.4050, L100.0100, L506.1001 #### [facility] [address] [place], [address] Basophils/100 WBC (Bld) 0.6 % Normal 0-1 [facility] Comment on above: Performed By: #### L 500.4100, L500.4050, L100.0100, L506.1001 #### [facility] [address] [place], [address] Eosinophils/100 WBC (Bld) 1.5 % Normal 0-5 [facility] Comment on above: Performed By: #### L 500.4100, L500.4050, L100.0100, L506.1001 #### [facility] [address] [place], [address] Erythrocyte distribution width (RBC) [Ratio] 12.0 % Normal 11.6-14.6 [facility] Comment on above: Performed By: #### L 500.4100, L500.4050, L100.0100, L506.1001 #### [facility] [address] [place], [address] Hematocrit (Bld) [Volume fraction] 41.5 % Normal 37-47 [facility] Comment on above: Performed By: #### L 500.4100, L500.4050, L100.0100, L506.1001 #### [facility] [address] [place], [address] Hemoglobin (Bld) [Mass/Vol] 14.2 g/dL Normal 12.0-15.0 [facility] Comment on above: Performed By: #### L 500.4100, L500.4050, L100.0100, L506.1001 #### [facility] [address] [place], [address] IG% 0.300 Normal 0.0-0.9 [facility] Comment on above: Result Comment: IG% - Immature Granulocytes (promyelocytes, myelocytes and metamyelocytes) > 1% indicates that a LEFT SHIFT is Present. Performed By: #### L 500.4100, L500.4050, L100.0100, L506.1001 #### [facility] [address] [place], [address] Lymphocytes/100 WBC (Bld) 21.0 % Normal 19-41 [facility] Comment on above: Performed By: #### L 500.4100, L500.4050, L100.0100, L506.1001 #### [facility] [address] [place], [address] MCH (RBC) [Entitic mass] 29.8 pg Normal 27.0-32.0 [facility] Comment on above: Performed By: #### L 500.4100, L500.4050, L100.0100, L506.1001 #### [facility] [address] [place], [address] MCHC (RBC) [Mass/Vol] 34.2 g/dL Normal 32-[address] [facility] Comment on above: Performed By: #### L 500.4100, L500.4050, L100.0100, L506.1001 #### [facility] [address] [place], [address] MCV (RBC) [Entitic vol] 87.2 fL Normal 81-99 [facility] Comment on above: Performed By: #### L 500.4100, L500.4050, L100.0100, L506.1001 #### [facility] [address] [place], [address] Monocytes/100 WBC (Bld) 6.3 % Normal 0-10 [facility] Comment on above: Performed By: #### L 500.4100, L500.4050, L100.0100, L506.1001 #### [facility] [address] [place], [address] Neutrophils/100 WBC (Bld) 70.3 % High 47-70 [facility] Comment on above: Performed By: #### L 500.4100, L500.4050, L100.0100, L506.1001 #### [facility] [address] [place], [address] Nucleated RBC (Bld) [#/Vol] 0 10*3/uL Normal 0-5 [facility] Comment on above: Performed By: #### L 500.4100, L500.4050, L100.0100, L506.1001 #### [facility] [address] [place], [address] Platelet mean volume (Bld) [Entitic vol] 9.2 fL Normal 6.2-12.0 [facility] Comment on above: Performed By: #### L 500.4100, L500.4050, L100.0100, L506.1001 #### [facility] [address] [place], [address] Platelets (Bld) [#/Vol] 374 10*3/uL Normal 150-450 [facility] Comment on above: Performed By: #### L 500.4100, L500.4050, L100.0100, L506.1001 #### [facility] [address] [place], [address] RBC (Bld) [#/Vol] 4.76 10*6/uL Normal 4.2-5.[address] [facility] Comment on above: Performed By: #### L 500.4100, L500.4050, L100.0100, L506.1001 #### [facility] [address] [place], [address] RDW SD 38.7 fl Normal 35.1-43.9 [facility] Comment on above: Performed By: #### L 500.4100, L500.4050, L100.0100, L506.1001 #### [facility] [address] [place], [address] WBC (Bld) [#/Vol] 6.5 10*3/uL Normal 4.4-11.0 [facility] Comment on above: Performed By: #### L 500.4100, L500.4050, L100.0100, L506.1001 #### [facility] [address] [place], [address] CRPon 09-09-2024 C-REACTIVE PROT < 3.00 Normal 0.0-3.0 [facility] Comment on above: Performed By: #### L 500.4100, L500.4050, L100.0100, L506.1001 #### [facility] [address] [place], [address] Carbon dioxide, total [Moles /volume] in Central venous bloodOrdered By: Tosha Hickey on 09-09-2024 CO2 [Moles/Vol] 25.0 mmol/L Normal 21.0-32.0 [facility] Comment on above: Performed By: #### L 500.4100, L500.4050, L100.0100, L506.1001 #### [facility] [address] [place], [address] Chloride assayOrdered By: Ra phil Hickey on 09-09-2024 Chloride [Moles/Vol] 96 mmol/L Low 98-108 [facility] Comment on above: Performed By: #### L 500.4100, L500.4050, L100.0100, L506.1001 #### [facility] [address] [place], [address] Eosinophil percentageOrdered By: Tosha Hickey on 09-09-2024 Eosinophils/100 WBC (Bld) 1.5 % 0-5 [facility] Erythrocyte Sed Rateon 09-09 SED RATE 1 mm/hr Normal 0-30 [facility] Comment on above: Performed By: #### L 500.4100, L500.4050, L100.0100, L506.1001 #### [facility] [address] [place], [place], [address] Erythrocyte distribution wid th ratioOrdered By: [facility] on 09-09-2024 Erythrocyte distribution width (RBC) [Ratio] 12.0 % 11.6-14.6 [facility] Erythrocyte distribution wid th standard deviationOrdered By: [facility] on 09-09-2024 Erythrocyte distribution width (RBC) [Ratio] 38.7 fl 35.1-43.9 [facility] Erythrocyte sedimentation ra teOrdered By: [facility] on 09-09-2024 ESR (Bld) [Velocity] 1 mm/h 0-30 [facility] Estradiolon 09-09-2024 ESTRADIOL < 5.0 Normal [facility] Comment on above: Result Comment: FEMA LES ADULT FEMALE: Premenopausal: 15-350 pg/mL(E2 levels vary widely through the menstrual cycle) Postmenopausal: <10 pg/mL BRONSON STAGES MEAN AGE REFERENCE RANGES Stage I(>14 days and prepubertal) 7.1 years Undetectable-20 pg/mLL Stage II 10.5 years Undetectable-24 pg/mL Stage III 11.6 years Undetectable-60 pg/mL Stage IV 12.3 years 15-85 pg/mL Stage V 14.5 years 15-350 pg/mL Puberty onset (transition from Bronson stage I to Bronson stage II) occurs for girls at a median age of 10.5 (/- 2) years. There is evidence that it may occur up to 1 year earlier in obese girls and in girls. Progression through Bronson stages is variable. Bronson stage V (adult) should be reached by age 18. Performed By: #### L 500.4100, L500.4050, L100.0100, L506.1001 #### [facility] [address] [place], [place], [id number] Follicle Stimulating Hormone on 09-09-2024 FSH 58.1 mIU/mL Normal [facility] Comment on above: Result Comment: FEMA LE: Follicular: 1.4 - 18.1 mIU/mL Midcycle: 3.4 - 33.4 mIU/mL Luteal: 1.5 - 9.1 mIU/mL Post Menopause: 23.0 - 116.3 mIU/mL MALE: 1.4 - 18.1 mIU/mL Performed By: #### L 500.4100, L500.4050, L100.0100, L506.1001 #### [facility] [address] [facility] [place], [place], [id number] Glomerular filtration rate ( GFR) estimation/1.73 sq m using serum, plasma, or whole bOrdered By: Tosha Hickey on 09-09-2024 GFR/1.73 sq M.predicted among non-blacks MDRD (S/P/Bld) [Vol rate/Area] 80 mL/min/{1.73_m2} Normal >60 [facility] Comment on above: mL/min/1.73m2 CKD-EP I Creatinine Equation (2020) Result Comment: mL/m in/1.73m2 CKD-EPI Creatinine Equation (2020) Performed By: #### L 500.4100, L500.4050, L100.0100, L506.1001 #### [facility] [address] [place], [place], [id number] Hematocrit Auto (Bld) [Volum e fraction]Ordered By: Tosha Hickey on 09-09-2024 Hematocrit (Bld) [Volume fraction] 41.5 % 37-47 [facility] Hemoglobin measurementOrdere d By: Tosha Hickey on 09-09-2024 Hemoglobin (Bld) [Mass/Vol] 14.2 g/dL 12.0-15.0 [facility] Immature granulocytes/100 WB C Auto (Bld)Ordered By: Tosha Hickey on 09-09-2024 Immature granulocytes/100 WBC (Bld) 0.300 % 0.0-0.9 [facility] Comment on above: IG% - Immature Granu locytes (promyelocytes, myelocytes and metamyelocytes) > 1% indicates that a LEFT SHIFT is Present. LH ser/plasOrdered By: Samy Hickey on 09-09-2024 Lutropin Qn 20.2 m[IU]/mL [facility] Comment on above: FEMALE:Follicular: 1 .9-12.5 mIU/mLMidcycle: 8.7-76.3 mIU/mLLuteal: 0.5-16.9 mIU/mLPost Menopause: 15.9-54.0 mIU/mLMALE:20-70 Years: 1.5-9.3 mIU/mL>70 Years: 3.1-34.6 mIU/mL Luteinizing Hormoneon 2024 LH 20.2 mIU/mL Normal [facility] Comment on above: Result Comment: FEMA LE: Follicular: 1.9-12.5 mIU/mL Midcycle: 8.7-76.3 mIU/mL Luteal: 0.5-16.9 mIU/mL Post Menopause: 15.9-54.0 mIU/mL MALE: 20-70 Years: 1.5-9.3 mIU/mL >70 Years: 3.1-34.6 mIU/mL Performed By: #### L 500.4100, L500.4050, L100.0100, L506.1001 #### [facility] [address] [place], [address] MCV (mean corpuscular volume ) determinationOrdered By: Tosha Hickey on 09-09-2024 MCV (RBC) [Entitic vol] 87.2 fL 81-99 [facility] Mean corpuscular hemoglobin (MCH) determinationOrdered By: Tosharuthann Hickey on 09-09-2024 MCH (RBC) [Entitic mass] 29.8 pg 27.0-32.0 [facility] Mean corpuscular hemoglobin concentration (MCHC) determinationOrdered By: Tosha Hickey on 09-09-2024 MCHC (RBC) [Mass/Vol] 34.2 g/dL 32-[address] [facility] Mean platelet volume determi nationOrdered By: Tosha Hickey on 09-09-2024 Platelet mean volume (Bld) [Entitic vol] 9.2 fL 6.2-12.0 [facility] Monocyte percentageOrdered B y: Tosha Hickey on 09-09-2024 Monocytes/100 WBC (Bld) 6.3 % 0-10 [facility] Neutrophil percentageOrdered By: Tosha Hickey on 09-09-2024 Neutrophils/100 WBC (Bld) 70.3 % High 47-70 [facility] Nucleated red blood cell per centageOrdered By: Tosha Hickey on 09-09-2024 Nucleated RBC/100 WBC (Bld) [Ratio] 0 % 0-5 [facility] Platelet countOrdered By: Ra phil Hickey on 09-09-2024 Platelets (Bld) [#/Vol] 374 10*3/uL 150-450 [facility] Potassium measurement (mass/ volume)Ordered By: Tosha Hickey on 09-09-2024 Potassium (Unsp spec) [Mass/Vol] 3.9 mmol/L 3.3-5.1 [facility] RBC Auto (Bld) [#/Vol]Ordere d By: Tosha Hickey on 09-09-2024 RBC (Bld) [#/Vol] 4.76 10*6/uL 4.2-5.[address] [facility] Serum creatinine measurement (mass/volume)Ordered By: Tosha Hickey on 09-09-2024 Creatinine [Mass/Vol] 0.81 mg/dL Normal 0.70-1.[address] [facility] Comment on above: Performed By: #### L 500.4100, L500.4050, L100.0100, L506.1001 #### [facility] [address] [place], [place], [id number] Serum glucose measurement (m ass/volume)Ordered By: Tosha Hickey on 09-09-2024 Glucose [Mass/Vol] 139 mg/dL High 70-99 [facility] Comment on above: Performed By: #### L 500.4100, L500.4050, L100.0100, L506.1001 #### [facility] [address] [place], [address] Serum or plasma C reactive p rotein measurement (mass/volume)Ordered By: Tosha Hickey on 09-09-2024 CRP [Mass/Vol] mg/L 0.0-3.0 [facility] Serum or plasma calcium mikaela urement (mass/volume)Ordered By: Tosha Hickey on 09-09-2024 Calcium [Mass/Vol] 9.1 mg/dL Normal 7.6-11.0 [facility] Comment on above: Performed By: #### L 500.4100, L500.4050, L100.0100, L506.1001 #### [facility] [address] [place], [address] Serum or plasma estradiol me asurement after follitropin dose (mass/volume)Ordered By: Tosha Hickey on 09-09-2024 E2 post dose follitropin [Mass/Vol] < 5.0 pg/mL [facility] Comment on above: FEMALES ADULT FEMALE : Premenopausal: 15-350 pg/mL(E2 levels vary widely through the menstrual cycle) Postmenopausal: <10 pg/mL BRONSON STAGES MEAN AGE REFERENCE RANGES Stage I(>14 days and prepubertal) 7.1 years Undetectable-20 pg/mLL Stage II 10.5 years Undetectable-24 pg/mL Stage III 11.6 years Undetectable-60 pg/mL Stage IV 12.3 years 15-85 pg/mL Stage V 14.5 years 15-350 pg/mL Puberty onset (transition from Bronson stage I to Bronson stage II) occurs for girls at a median age of 10.5 (/- 2) years. There is evidence that it may occur up to 1 year earlier in obese girls and in girls.Progression through Bronson stages is variable. Bronson stage V (adult) should be reached by age 18. Serum or plasma urea nitroge n measurement (mass/volume)Ordered By: Tosha Hickey on 09-09-2024 Urea nitrogen [Mass/Vol] 11 mg/dL Normal -19 [facility] Comment on above: Performed By: #### L 500.4100, L500.4050, L100.0100, L506.1001 #### [facility] [address] [place], [address] Sodium levelOrdered By: Haley Hickey on 09-09-2024 Sodium [Moles/Vol] 132 mmol/L Low 133-145 [facility] Comment on above: Performed By: #### L 500.4100, L500.4050, L100.0100, L506.1001 #### [facility] [address] [place], [address] TSH DL <= 0.005 mIU/L QnOrde red By: Tosha Hickey on 09-09-2024 TSH Qn 1.300 uIU/mL 0.300-4.200 [facility] Thyroid Stim Hormone (TSH)on 09-09-2024 TSH 1.300 uIU/mL Normal 0.300-4.200 [facility] Comment on above: Performed By: #### L 500.4100, L500.4050, L100.0100, L506.1001 #### [facility] [address] [place], [address] White blood cell (WBC) count Ordered By: Tosha Hickey on 09-09-2024 WBC (Bld) [#/Vol] 6.5 10*3/uL 4.4-11.0 [facility] Anion gap in Serum or Plasma Ordered By: Tosha Hickey on 09-06-2024 Anion gap [Moles/Vol] 9 mmol/L - [facility] BUN/creatinine ratioOrdered By: Tosha Hickey on 09-06-2024 Urea nitrogen/Creatinine [Mass ratio] 13.0 mg/mg - [facility] Basic Metabolic Profile (BMP )on 09-06-2024 BUN/CRE 13.0 RATIO Normal - [facility] Comment on above: Performed By: #### L 500.4100, L500.4050, L100.0100, L506.1001 #### [facility] [address] [place], [address] Calcium [Mass/Vol] 9.2 mg/dL Normal 7.6-11.0 [facility] Comment on above: Performed By: #### L 500.4100, L500.4050, L100.0100, L506.1001 #### [facility] [address] [place], [address] Chloride [Moles/Vol] 97 mmol/L Low 98-108 [facility] Comment on above: Performed By: #### L 500.4100, L500.4050, L100.0100, L506.1001 #### [facility] [address] [place], [address] CO2 [Moles/Vol] 26.6 mmol/L Normal 21.0-32.0 [facility] Comment on above: Performed By: #### L 500.4100, L500.4050, L100.0100, L506.1001 #### [facility] [address] [place], [address] Creatinine [Mass/Vol] 0.72 mg/dL Normal 0.70-1.[address] [facility] Comment on above: Performed By: #### L 500.4100, L500.4050, L100.0100, L506.1001 #### [facility] [address] [place], [address] GAP 9 Normal 5-15 [facility] Comment on above: Performed By: #### L 500.4100, L500.4050, L100.0100, L506.1001 #### [facility] [address] [place], [address] GFR/1.73 sq M.predicted among non-blacks MDRD (S/P/Bld) [Vol rate/Area] 91 mL/min/{1.73_m2} Normal >60 [facility] Comment on above: Result Comment: mL/m in/1.73m2 CKD-EPI Creatinine Equation (2020) Performed By: #### L 500.4100, L500.4050, L100.0100, L506.1001 #### [facility] [address] [place], [address] Glucose [Mass/Vol] 90 mg/dL Normal 70-99 [facility] Comment on above: Performed By: #### L 500.4100, L500.4050, L100.0100, L506.1001 #### [facility] [address] [place], [address] Potassium [Moles/Vol] 4.4 mmol/L Normal 3.3-5.[address] [facility] Comment on above: Performed By: #### L 500.4100, L500.4050, L100.0100, L506.1001 #### [facility] [address] [place], [address] Sodium [Moles/Vol] 133 mmol/L Normal 133-145 [facility] Comment on above: Performed By: #### L 500.4100, L500.4050, L100.0100, L506.1001 #### [facility] [address] [place], [address] Urea nitrogen [Mass/Vol] 9 mg/dL Normal 4-19 [facility] Comment on above: Performed By: #### L 500.4100, L500.4050, L100.0100, L506.1001 #### [facility] [address] [place], [address] Carbon dioxide, total [Moles /volume] in Central venous bloodOrdered By: Tosha Hickey on 09-06-2024 CO2 [Moles/Vol] 26.6 mmol/L 21.0-32.0 [facility] Chloride assayOrdered By: Ra phil Hickey on 09-06-2024 Chloride [Moles/Vol] 97 mmol/L Low 98-108 [facility] Glomerular filtration rate ( GFR) estimation/1.73 sq m using serum, plasma, or whole bOrdered By: Tosha Hickey on 09-06-2024 GFR/1.73 sq M.predicted among non-blacks MDRD (S/P/Bld) [Vol rate/Area] 91 mL/min/{1.73_m2} >60 [facility] Comment on above: mL/min/1.73m2 CKD-EP I Creatinine Equation (2020) Potassium measurement (mass/ volume)Ordered By: Tosha Hickey on 09-06-2024 Potassium (Unsp spec) [Mass/Vol] 4.4 mmol/L 3.3-5.1 [facility] Serum creatinine measurement (mass/volume)Ordered By: Tosha Waregar on 09-06-2024 Creatinine [Mass/Vol] 0.72 mg/dL 0.70-1.[address] [facility] Serum glucose measurement (m ass/volume)Ordered By: [facility] on 09-06-2024 Glucose [Mass/Vol] 90 mg/dL 70-99 [facility] Serum or plasma calcium mikaela urement (mass/volume)Ordered By: Tosha Ruperto on 09-06-2024 Calcium [Mass/Vol] 9.2 mg/dL 7.6-11.0 [facility] Serum or plasma urea nitroge n measurement (mass/volume)Or[facility]: [facility] Urea nitrogen [Mass/Vol] 9 mg/dL 4-19 [facility] Sodium levelOrdered By: Haley rojas Edgar on 09-06-2024 Sodium [Moles/Vol] 133 mmol/L 133-145 [facility] Lyme Antibodies,W [place] Lyme Additional Comment Normal . [facility] Comment on above: Result Comment: Per CDC criteria, the Lyme IgG Immunoblot is interpreted as positive if IgG-class antibodies are detected to 5 or more B. burgdorferi proteins, and the Lyme IgM Immunoblot is interpreted as positive if IgM-class antibodies are detected to 2 or more B. burgdorferi proteins. Immunoblot patterns not meeting these criteria should not be interpreted as positive. Epitopes from certain B. burgdorferi proteins (e.g., p41) are conserved across other bacteria, which may lead to the detection of IgM-and/or IgG class antibodies on the Lyme disease immunoblots in patients without Lyme disease. Immunoblot should only be ordered on specimens that are positive or equivocal by an FDA-licensed Lyme disease antibody screening test (e.g., EIA). Results of the Lyme IgM immunoblot should not be considered in patients with 30 or more days of symptoms. Performed at: [address] [id number] Corporate Development Manager: Jhoan Samuel MD, Phone: [phone] Performed By: #### L 7000.5800, L700.5500 #### [facility] [address] [place], [address] LYME IgG INTERP Negative Normal Negative [facility] Comment on above: Performed By: #### L 7000.5800, L700.5500 #### [facility] [address] [place], [address] LYME IgM INTERP Negative Normal Negative [facility] Comment on above: Result Comment: Plecaterina byrne Note: Lyme immunoblot alone is not recommended for the diagnosis of Lyme disease. Current guidelines recommend the use of a two-tiered approach to Lyme serology testing to improve the sensitivity and specificity of testing. [facility] test code 438679 Lyme Disease Serology with Reflex to aid in the diagnosis of Lyme Disease. Performed By: #### L 0.5800, L700.5500 #### [facility] [address] [place], [address] P18 Ab Absent Normal . [facility] Comment on above: Performed By: #### L 0.5800, L700.5500 #### [facility] [address] [place], [address] P23 Ab Absent Normal . [facility] Comment on above: Performed By: #### L 0.5800, L700.5500 #### [facility] [address] [place], [address] P28 Ab Absent Normal . [facility] Comment on above: Performed By: #### L 7000.5800, L700.5500 #### [facility] [address] [place], [address] P30 Ab Absent Normal . [facility] Comment on above: Performed By: #### L 7000.5800, L700.5500 #### [facility] [address] [place], [address] P39 Ab Absent Normal . [facility] Comment on above: Performed By: #### L 7000.5800, L700.5500 #### [facility] [address] [place], [address] P41 Ab Absent Normal . [facility] Comment on above: Performed By: #### L 7000.5800, L700.5500 #### [facility] [address] [place], [address] P45 Ab Absent Normal . [facility] Comment on above: Performed By: #### L 7000.5800, L700.5500 #### [facility] [address] [place], [address] P58 Ab Absent Normal . [facility] Comment on above: Performed By: #### L 7000.5800, L700.5500 #### [facility] [address] [place], [address] P66 Ab Absent Normal . [facility] Comment on above: Performed By: #### L 7000.5800, L700.5500 #### [facility] [address] [place], [address] P93 Ab Absent Normal . [facility] Comment on above: Performed By: #### L 7000.5800, L700.5500 #### [facility] [address] [place], [address] Urine Cultureon 08-24-2024 URC #1, 2 Below infectio n level. Gram negative clarita [place] Count <1000 Mixed Gram Positive Organisms Mixed Gram Positive Organisms MIXC Mixed contaminants. Submit a new specimen if indicated. Normal [facility] Comment on above: Performed By: #### M 100.2200 #### [facility] [address] [place], [place], [address] Chest PA and Lateralon 08-23 Chest PA and Lateral [facility] [address] [place], [place] [address] Chest PA and Lateral MR#: [id number] Acct: [id number] Name: VIRGINIA RALPH Rep #: [id number] : [id number] F 69 From: Diego Wright MD PCP: KT Cobos Status: REG CLI Study: Chest PA and Lateral Date of Exam: 08/23/24 Exam# [id number] Ordering Dr: Tosha Hickey EXAM: XR Chest, 2 Views CLINICAL INDICATION: SOB TECHNIQUE: Frontal and lateral views of the chest. COMPARISON: No relevant prior studies available. FINDINGS: LUNGS AND PLEURAL SPACES: Unremarkable. No consolidation. No pneumothorax. HEART: Unremarkable. No cardiomegaly. MEDIASTINUM: Unremarkable. Normal mediastinal contour. BONES/JOINTS: Unremarkable. No acute fracture. RAD/Chest PA and Lateral IMPRESSION: No acute cardiopulmonary process. Reading [facility] CC: RECORD FILING CLERK-C Tosha Hickey Montessori Paraprofessional: Signed Normal [facility] Monoteston 08-23-2024 Monocytes (Bld) [#/Vol] Negative Normal Negative [facility] Comment on above: Performed By: #### L 7000.5800, L700.5500 #### [facility] [address] [facility] [place], [address] No Panel InformationOrdered By: Tosha Hickey on 08-23-2024 Lyme Disease IgG Ab 30 kDa Band Absent . [facility] Lyme Disease IgG Ab 93 kDa Band Absent . [facility] Lyme Disease IgG [place] Interp Negative Negative [facility] Lyme Disease IgM Ab (Western Blot) Negative Negative [facility] Comment on above: Please Note: Lyme im munoblot alone is not recommended forthe diagnosis of Lyme disease. Current guidelines recommendthe use of a two-tiered approach to Lyme serology testingto improve the sensitivity and specificity of testing.[facility] offers test code 836360 Lyme Disease Serology withReflex to aid in the diagnosis of Lyme Disease. Lyme Disease Western Blot Comments Comment . [facility] Comment on above: Per CDC criteria, th e Lyme IgG Immunoblot is interpreted aspositive if IgG-class antibodies are detected to 5 or moreB. burgdorferi proteins, and the Lyme IgM Immunoblot isinterpreted as positive if IgM-class antibodies aredetected to 2 or more B. burgdorferi proteins. Immunoblotpatterns not meeting these criteria should not beinterpreted as positive. Epitopes from certain B.burgdorferi proteins (e.g., p41) are conserved across otherbacteria, which may lead to the detection of IgM-and/or IgGclass antibodies on the Lyme disease immunoblots inpatients without Lyme disease. Immunoblot should only beordered on specimens that are positive or equivocal by anA-licensed Lyme disease antibody screening test (e.g.,EIA). Results of the Lyme IgM immunoblot should not beconsidered in patients with 30 or more days of symptoms.Performed at: [address] [id number] Director: hJoan Samuel MD, Phone: [phone] Serum heterophile antibody d etectionOrdered By: Tosha Hickey on 08-23-2024 Heterophile Ab Ql (S) Negative Negative [facility] Urine cultureOrdered By: Luis Hickey on 08-23-2024 Bacteria identified Cx Nom (U) Negative Abnormal [facility] Bacteria identified Cx Nom (U) Positive Abnormal [facility] Absolute lymphocyte countOrd ered By: Tosha Hickey on 08-20-2024 Lymphocytes Auto (Unsp spec) [#/Vol] 1.72 10*3/uL 0.83-4.51 [facility] Absolute neutrophil countOrd ered By: Tosha Hickey on 08-20-2024 Neutrophils (Bld) [#/Vol] 8.1 10*3/uL High 2.0-7.7 [facility] Anion gap in Serum or Plasma Ordered By: Tosha Hickey on 08-20-2024 Anion gap [Moles/Vol] 11 mmol/L 5-[address] [facility] Automated lymphocyte count a s percentage of total leukocytesOrdered By: Tosha Hickey on 08-20-2024 Lymphocytes/100 WBC Auto (Unsp spec) 16.3 % Low 19-41 [facility] BUN/creatinine ratioOrdered By: Tosha Hickey on 08-20-2024 Urea nitrogen/Creatinine [Mass ratio] 11.6 mg/mg 10-20 [facility] Basophil percentageOrdered B y: Tosha Hickey on 08-20-2024 Basophils/100 WBC (Bld) 0.2 % 0-1 [facility] Bilirubin, totalOrdered By: Tosha Hickey on 08-20-2024 Bilirubin [Mass/Vol] 0.30 mg/dL 0.00-1.30 [facility] CBC W/Diff, Automatedon 07-24 0-2024 Absolute Lymph 1.72 X10 3/uL Normal 0.83-4.51 [facility] Comment on above: Performed By: #### L 500.4100, L500.4050, L100.0100, L506.1001 #### [facility] [address] [place], [address] Absolute Neut 8.1 X10 3/uL High 2.0-7.7 [facility] Comment on above: Performed By: #### L 500.4100, L500.4050, L100.0100, L506.1001 #### [facility] [address] [place], [address] Basophils/100 WBC (Bld) 0.2 % Normal 0-1 [facility] Comment on above: Performed By: #### L 500.4100, L500.4050, L100.0100, L506.1001 #### [facility] [address] [place], [address] Eosinophils/100 WBC (Bld) 0.0 % Normal 0-5 [facility] Comment on above: Performed By: #### L 500.4100, L500.4050, L100.0100, L506.1001 #### [facility] [address] [place], [address] Erythrocyte distribution width (RBC) [Ratio] 11.9 % Normal 11.6-14.6 [facility] Comment on above: Performed By: #### L 500.4100, L500.4050, L100.0100, L506.1001 #### [facility] [address] [place], [address] Hematocrit (Bld) [Volume fraction] 43.1 % Normal 37-47 [facility] Comment on above: Performed By: #### L 500.4100, L500.4050, L100.0100, L506.1001 #### [facility] [address] [place], [address] Hemoglobin (Bld) [Mass/Vol] 15.1 g/dL High 12.0-15.0 [facility] Comment on above: Performed By: #### L 500.4100, L500.4050, L100.0100, L506.1001 #### [facility] [address] [place], [address] IG% 0.400 Normal 0.0-0.9 [facility] Comment on above: Result Comment: IG% - Immature Granulocytes (promyelocytes, myelocytes and metamyelocytes) > 1% indicates that a LEFT SHIFT is Present. Performed By: #### L 500.4100, L500.4050, L100.0100, L506.1001 #### [facility] [address] [place], [address] Lymphocytes/100 WBC (Bld) 16.3 % Low 19-41 [facility] Comment on above: Performed By: #### L 500.4100, L500.4050, L100.0100, L506.1001 #### [facility] [address] [place], [address] MCH (RBC) [Entitic mass] 30.4 pg Normal 27.0-32.0 [facility] Comment on above: Performed By: #### L 500.4100, L500.4050, L100.0100, L506.1001 #### [facility] [address] [place], [address] MCHC (RBC) [Mass/Vol] 35.0 g/dL Normal 32-[address] [facility] Comment on above: Performed By: #### L 500.4100, L500.4050, L100.0100, L506.1001 #### [facility] [address] [place], [address] MCV (RBC) [Entitic vol] 86.7 fL Normal 81-99 [facility] Comment on above: Performed By: #### L 500.4100, L500.4050, L100.0100, L506.1001 #### [facility] [address] [place], [address] Monocytes/100 WBC (Bld) 6.1 % Normal 0-10 [facility] Comment on above: Performed By: #### L 500.4100, L500.4050, L100.0100, L506.1001 #### [facility] [address] [place], [address] Neutrophils/100 WBC (Bld) 77.0 % High 47-70 [facility] Comment on above: Performed By: #### L 500.4100, L500.4050, L100.0100, L506.1001 #### [facility] [address] [place], [address] Nucleated RBC (Bld) [#/Vol] 0 10*3/uL Normal 0-5 [facility] Comment on above: Performed By: #### L 500.4100, L500.4050, L100.0100, L506.1001 #### [facility] [address] [place], [address] Platelet mean volume (Bld) [Entitic vol] 9.6 fL Normal 6.2-12.0 [facility] Comment on above: Performed By: #### L 500.4100, L500.4050, L100.0100, L506.1001 #### [facility] [address] [place], [address] Platelets (Bld) [#/Vol] 438 10*3/uL Normal 150-450 [facility] Comment on above: Performed By: #### L 500.4100, L500.4050, L100.0100, L506.1001 #### [facility] [address] [place], [address] RBC (Bld) [#/Vol] 4.97 10*6/uL Normal 4.2-5.[address] [facility] Comment on above: Performed By: #### L 500.4100, L500.4050, L100.0100, L506.1001 #### [facility] [address] [place], [address] RDW SD 37.8 fl Normal 35.1-43.9 [facility] Comment on above: Performed By: #### L 500.4100, L500.4050, L100.0100, L506.1001 #### [facility] [address] [place], [address] WBC (Bld) [#/Vol] 10.5 10*3/uL Normal 4.4-11.[address] [facility] Comment on above: Performed By: #### L 500.4100, L500.4050, L100.0100, L506.1001 #### [facility] [address] [place], [address] Calculated very low density lipoprotein (VLDL) cholesterol measurementOrdered By: Tosha Hickey on 08-20-2024 Calculated very low density lipoprotein (VLDL) cholesterol measurement 23 mg/dL 5-40 [facility] Carbon dioxide, total [Moles /volume] in Central venous bloodOrdered By: Tosha Hickey on 08-20-2024 CO2 [Moles/Vol] 27.2 mmol/L 21.0-32.0 [facility] Chloride assayOrdered By: Ra phil Hickey on 08-20-2024 Chloride [Moles/Vol] 91 mmol/L Low 98-108 [facility] Comprehensive Metabolic Prof ilon 08-20-2024 Albumin [Mass/Vol] 4.4 g/dL Normal 3.4-4.8 [facility] Comment on above: Performed By: #### L 500.4100, L500.4050, L100.0100, L506.1001 #### [facility] [address] [place], [address] Albumin/Globulin [Mass ratio] 1.5 {ratio} Normal 0.9-2.4 [facility] Comment on above: Performed By: #### L 500.4100, L500.4050, L100.0100, L506.1001 #### [facility] [address] [place], [address] ALK PHOS 91 U/L Normal 35-104 [facility] Comment on above: Performed By: #### L 500.4100, L500.4050, L100.0100, L506.1001 #### [facility] [address] [place], [address] ALT [Catalytic activity/Vol] 13 U/L Normal <=34 [facility] Comment on above: Performed By: #### L 500.4100, L500.4050, L100.0100, L506.1001 #### [facility] [address] [place], [address] AST [Catalytic activity/Vol] 15 U/L Normal <=31 [facility] Comment on above: Performed By: #### L 500.4100, L500.4050, L100.0100, L506.1001 #### [facility] [address] [place], [address] Bilirubin [Mass/Vol] 0.30 mg/dL Normal 0.00-1.30 [facility] Comment on above: Performed By: #### L 500.4100, L500.4050, L100.0100, L506.1001 #### [facility] [address] [place], [address] BUN/CRE 11.6 RATIO Normal 10-20 [facility] Comment on above: Performed By: #### L 500.4100, L500.4050, L100.0100, L506.1001 #### [facility] [address] [place], [address] Calcium [Mass/Vol] 9.8 mg/dL Normal 7.6-11.0 [facility] Comment on above: Performed By: #### L 500.4100, L500.4050, L100.0100, L506.1001 #### [facility] [address] [place], [address] Chloride [Moles/Vol] 91 mmol/L Low 98-108 [facility] Comment on above: Performed By: #### L 500.4100, L500.4050, L100.0100, L506.1001 #### [facility] [address] [place], [address] CO2 [Moles/Vol] 27.2 mmol/L Normal 21.0-32.0 [facility] Comment on above: Performed By: #### L 500.4100, L500.4050, L100.0100, L506.1001 #### [facility] [address] [place], [address] Creatinine [Mass/Vol] 0.73 mg/dL Normal 0.70-1.[address] [facility] Comment on above: Performed By: #### L 500.4100, L500.4050, L100.0100, L506.1001 #### [facility] [address] [place], [address] GAP 11 Normal 5-15 [facility] Comment on above: Performed By: #### L 500.4100, L500.4050, L100.0100, L506.1001 #### [facility] [address] [place], [address] GFR/1.73 sq M.predicted among non-blacks MDRD (S/P/Bld) [Vol rate/Area] 89 mL/min/{1.73_m2} Normal >60 [facility] Comment on above: Result Comment: mL/m in/1.73m2 CKD-EPI Creatinine Equation (2020) Performed By: #### L 500.4100, L500.4050, L100.0100, L506.1001 #### [facility] [address] [place], [address] Globulin (S) [Mass/Vol] 2.9 g/dL Normal 2.2-4.2 [facility] Comment on above: Performed By: #### L 500.4100, L500.4050, L100.0100, L506.1001 #### [facility] [address] [place], [address] Glucose [Mass/Vol] 76 mg/dL Normal 70-99 [facility] Comment on above: Performed By: #### L 500.4100, L500.4050, L100.0100, L506.1001 #### [facility] [address] [place], [address] Potassium [Moles/Vol] 3.7 mmol/L Normal 3.3-5.[address] [facility] Comment on above: Performed By: #### L 500.4100, L500.4050, L100.0100, L506.1001 #### [facility] [address] [place], [address] Sodium [Moles/Vol] 129 mmol/L Low 133-145 [facility] Comment on above: Performed By: #### L 500.4100, L500.4050, L100.0100, L506.1001 #### [facility] [address] [place], [address] T PROT 7.4 g/dL Normal 5.9-8.4 [facility] Comment on above: Performed By: #### L 500.4100, L500.4050, L100.0100, L506.1001 #### [facility] [address] [place], [address] Urea nitrogen [Mass/Vol] 8 mg/dL Normal 4-19 [facility] Comment on above: Performed By: #### L 500.4100, L500.4050, L100.0100, L506.1001 #### [facility] [address] [place], [address] Eosinophil percentageOrdered By: Tosha Hickey on 08-20-2024 Eosinophils/100 WBC (Bld) 0.0 % 0-5 [facility] Erythrocyte distribution wid th ratioOrdered By: Tosha Hickey on 08-20-2024 Erythrocyte distribution width (RBC) [Ratio] 11.9 % 11.6-14.6 [facility] Erythrocyte distribution wid th standard deviationOrdered By: Tosharuthann Hickey on 08-20-2024 Erythrocyte distribution width (RBC) [Ratio] 37.8 fl 35.1-43.9 [facility] Glomerular filtration rate ( GFR) estimation/1.73 sq m using serum, plasma, or whole bOrdered By: Tosha Hickey on 08-20-2024 GFR/1.73 sq M.predicted among non-blacks MDRD (S/P/Bld) [Vol rate/Area] 89 mL/min/{1.73_m2} >60 [facility] Comment on above: mL/min/1.73m2 CKD-EP I Creatinine Equation (2020) Hematocrit Auto (Bld) [Volum e fraction]Ordered By: Tosha Hickey on 08-20-2024 Hematocrit (Bld) [Volume fraction] 43.1 % 37-47 [facility] Hemoglobin measurementOrdere d By: Tosha Hickey on 08-20-2024 Hemoglobin (Bld) [Mass/Vol] 15.1 g/dL High 12.0-15.0 [facility] Immature granulocytes/100 WB C Auto (Bld)Ordered By: Tosha Ruperto on 08-20-2024 Immature granulocytes/100 WBC (Bld) 0.400 % 0.0-0.9 [facility] Comment on above: IG% - Immature Granu locytes (promyelocytes, myelocytes and metamyelocytes) > 1% indicates that a LEFT SHIFT is Present. LDL calc ser/plasOrdered By: Tosha Ruperto on 08-20-2024 Cholesterol in LDL [Mass/Vol] 112 mg/dL [facility] Comment on above: Cylwixsrra=958-388 m g/dL & Higher Lyxz=570 mg/dL or greater Laboratory - Chemistry and C hemistry - challengeOrdered By: [facility]2024 AST [Catalytic activity/Vol] 15 U/L <32 [facility] Lipid Profileon 08-20-2024 CHOL:HDL 3.08 Normal [facility] Comment on above: Performed By: #### L 500.4100, L500.4050, L100.0100, L506.1001 #### [facility] [address] [place], [address] Cholesterol [Mass/Vol] 199 mg/dL Normal <=200 [facility] Comment on above: Result Comment: Chol esterol level, Desirable <200 mg/dL Borderline high cholesterol 200-239 mg/dL High cholesterol >=240 mg/dL Recommendations of the NCEP Adult Treatment Panel for the following risk-cutoff thresholds for the [place] population. Performed By: #### L 500.4100, L500.4050, L100.0100, L506.1001 #### [facility] [address] [place], [address] Cholesterol in HDL [Mass/Vol] 65 mg/dL Normal [facility] Comment on above: Result Comment: Aimee onal Cholesterol Education Program (NCEP) guidelines: <40 mg/dL: Low HDL-cholesterol (major risk factor for CHD) >= 60 mg/dL: High HDL-cholesterol (negative risk factor for CHD) HDL-cholesterol is affected by a number of factors, e.g. smoking, exercise, hormones, sex and age. Performed By: #### L 500.4100, L500.4050, L100.0100, L506.1001 #### [facility] [address] [place], [address] Cholesterol in LDL [Mass/Vol] 112 mg/dL Normal [facility] Comment on above: Result Comment: Bord hshkkd=532-470 mg/dL Higher Nauc=283 mg/dL or greater Performed By: #### L 500.4100, L500.4050, L100.0100, L506.1001 #### [facility] [address] [place], [address] Cholesterol in VLDL [Mass/Vol] 23 mg/dL Normal 5-40 [facility] Comment on above: Performed By: #### L 500.4100, L500.4050, L100.0100, L506.1001 #### [facility] [address] [place], [address] Triglyceride [Mass/Vol] 114 mg/dL Normal [facility] Comment on above: Result Comment: The drugs N-Acetylcysteine and Metamizole may falsely depress this assay. Normal range: <150 mg/dL Borderline High: 150-199 mg/dL High: 200-499 mg/dL Very High: >500 mg/dL Performed By: #### L 500.4100, L500.4050, L100.0100, L506.1001 #### [facility] [address] [place], [address] MCV (mean corpuscular volume ) determinationOrdered By: Tosha Hickey on 08-20-2024 MCV (RBC) [Entitic vol] 86.7 fL 81-99 [facility] Mean corpuscular hemoglobin (MCH) determinationOrdered By: Tosha Hickey on 08-20-2024 MCH (RBC) [Entitic mass] 30.4 pg 27.0-32.0 [facility] Mean corpuscular hemoglobin concentration (MCHC) determinationOrdered By: Tosha Hickey on 08-20-2024 MCHC (RBC) [Mass/Vol] 35.0 g/dL 32-[address] [facility] Mean platelet volume determi nationOrdered By: Tosha Hickey on 08-20-2024 Platelet mean volume (Bld) [Entitic vol] 9.6 fL 6.2-12.0 [facility] Monocyte percentageOrdered B y: Tosha Hickey on 08-20-2024 Monocytes/100 WBC (Bld) 6.1 % 0-10 [facility] Neutrophil percentageOrdered By: Tosha Hickey on 08-20-2024 Neutrophils/100 WBC (Bld) 77.0 % High 47-70 [facility] Nucleated red blood cell per centageOrdered By: Tosha Hickey on 08-20-2024 Nucleated RBC/100 WBC (Bld) [Ratio] 0 % 0-5 [facility] Platelet countOrdered By: Ra phil Hickey on 08-20-2024 Platelets (Bld) [#/Vol] 438 10*3/uL 150-450 [facility] Potassium measurement (mass/ volume)Ordered By: Tosha Hickey on 08-20-2024 Potassium (Unsp spec) [Mass/Vol] 3.7 mmol/L 3.3-5.1 [facility] RBC Auto (Bld) [#/Vol]Ordere d By: Tosha Hickey on 08-20-2024 RBC (Bld) [#/Vol] 4.97 10*6/uL 4.2-5.[address] [facility] Screening total cholesterol/ high density lipoprotein (HDL) cholesterol ratioOrdered By: Tosha Hickey on 08-20-2024 Cholesterol.total/Choles terol in HDL [Mass ratio] 3.08 {ratio} [facility] Serum creatinine measurement (mass/volume)Ordered By: Tosha Hickey on 08-20-2024 Creatinine [Mass/Vol] 0.73 mg/dL 0.70-1.[address] [facility] Serum globulin measurementOr dered By: Tosha Hickey on 08-20-2024 Globulin (S) [Mass/Vol] 2.9 g/dL 2.2-4.2 [facility] Serum glucose measurement (m ass/volume)Ordered By: Tosha Hickey on 08-20-2024 Glucose [Mass/Vol] 76 mg/dL 70-99 [facility] Serum or plasma alanine elizabeth otransferase (ALT) measurementOrdered By: Tosha Hickey on 08-20-2024 ALT [Catalytic activity/Vol] 13 U/L <35 [facility] Serum or plasma albumin mikaela urement (mass/volume)Ordered By: Tosha Hickey on 08-20-2024 Albumin [Mass/Vol] 4.4 g/dL 3.4-4.8 [facility] Serum or plasma albumin/glob ulin mass ratioOrdered By: Tosha Hickey on 08-20-2024 Albumin/Globulin [Mass ratio] 1.5 {ratio} 0.9-2.4 [facility] Serum or plasma alkaline everett sphatase measurementOrdered By: Tosha Hickey on 08-20-2024 ALP [Catalytic activity/Vol] 91 U/L 35-104 [facility] Serum or plasma calcium mikaela urement (mass/volume)Ordered By: Tosha Hickey on 08-20-2024 Calcium [Mass/Vol] 9.8 mg/dL 7.6-11.0 [facility] Serum or plasma cholesterol in HDL measurement (mass/volume)Ordered By: Tosha Hickey on 08-20-2024 Cholesterol in HDL [Mass/Vol] 65 mg/dL >40 [facility] Comment on above: National Cholesterol Education Program (NCEP) guidelines:<40 mg/dL: Low HDL-cholesterol (major risk factor for CHD)>= 60 mg/dL: High HDL-cholesterol (negative risk factor for CHD)HDL-cholesterol is affected by a number of factors, e.g. smoking, exercise, hormones, sex and age. Serum or plasma cholesterol measurement (mass/volume)Ordered By: Tosha Hickey on 08-20-2024 Cholesterol [Mass/Vol] 199 mg/dL <201 [facility] Comment on above: Cholesterol level, D esirable <200 mg/dLBorderline high cholesterol 200-239 mg/dLHigh cholesterol >=240 mg/dLRecommendations of the NCEP Adult Treatment Panel for the following risk-cutoff thresholds for the [place] population. Serum or plasma urea nitroge n measurement (mass/volume)Ordered By: Tosha Hickey on 08-20-2024 Urea nitrogen [Mass/Vol] 8 mg/dL 4-19 [facility] Sodium levelOrdered By: Haley Hickey on 08-20-2024 Sodium [Moles/Vol] 129 mmol/L Low 133-145 [facility] Total proteinOrdered By: Luis Hickey on 08-20-2024 Protein [Mass/Vol] 7.4 g/dL 5.9-8.4 [facility] Triglycerides measurementOrd ered By: Tosha Hickey on 08-20-2024 Triglyceride [Mass/Vol] 114 mg/dL <199 [facility] Comment on above: The drugs N-Acetylcy steine and Metamizole may falsely depress this assay. Normal range: <150 mg/dLBorderline High: 150-199 mg/dLHigh: 200-499 mg/dLVery High: >500 mg/dL Vitamin D,25 Hydroxyon 08-20 Vitamin D 25-OH 54.4 ng/mL Normal 30-100 [facility] Comment on above: Result Comment: Wendy min D Status Deficiency: <20 ng/mL (50nmol/L) Insufficiency: 20-30 ng/mL (50-75 nmol/L) Sufficiency: 30-100 ng/mL (75-250 nmol/L) Toxicity: >100 ng/mL (>250 nmol/L) Performed By: #### L 500.4100, L500.4050, L100.0100, L506.1001 #### [facility] [address] [place], [address] White blood cell (WBC) count Ordered By: Tosha Hickey on 08-20-2024 WBC (Bld) [#/Vol] 10.5 10*3/uL 4.4-11.[address] [facility] Bacteria Ur Culton 5 Bacteria identified Cx Nom (U) CULTURE, URINE: Mixed microbiota, including predominantly: ORGANISM ID: 1 >=100,000 CFU/ml Escherichia coli ORGANISM ID: 1 (ESCHERICHIA COLI) ------ ANTIBIOTIC INTERPRETATION JOEL STATUS REFERENCE RANGE ------ Ampicillin R >=32 F Susceptible <=8 , Intermediate >8 , Resistant >16 Cefazolin S <=4 F Susceptible 0-16 , Intermediate <0 or >16 , Resistant >16 For uncomplicated urinary tract infections, cefazolin results can be used to predict susceptibility or resistance to cephalexin. Ceftriaxone S <=1 F Susceptible <=1 , Intermediate >1 , Resistant >=4 Cefepime S <=1 F Susceptible <=2 , Susceptible-Dose Dependent >2 , Resistant >=16 Ertapenem S <=0.5 F Susceptible <=0.5 , Intermediate >.5 , Resistant >1 Meropenem S <=0.25 F Susceptible <=1 , Intermediate >1 , Resistant >2 Ampicillin/Sulbact S 8 F Susceptible <=8 , Intermediate >8 , Resistant >16 Piperacillin/Tazobac S <=4 F Susceptible <16 , Susceptible-Dose Dependent >=16 , Resistant >=32 Gentamicin S <=1 F Susceptible <=2 , Intermediate >2 , Resistant >=8 Tobramycin S <=1 F Susceptible <4 , Intermediate >=4 , Resistant >=8 Trimeth sulfameth R >=320 F Susceptible <=40 , Resistant >40 Ciprofloxacin S <=0.25 F Susceptible <0.5 , Intermediate >=.5 , Resistant >=1 Nitrofurantoin S <=16 F Susceptible <=32 , Intermediate >32 , Resistant >64 Abnormal [facility] Comment on above: Performed By: #### 6 30-4 #### [facility] CLIA [id number] [address] [place] [address] OF [facility] CNOVon 08-16-2024 CNOV Office Visit (UCWSTR ) VIRGINIA RALPH ([id number]) 1955 F Date Time Provider Department 08/16/24 2:15 PM DARIO HEDRICK [facility] During your visit today, we recorded the following information about you: Temperature Pulse Respiration Blood pressure 99.2 degrees 76/minute 16/minute 124/70 Weight 70.4 kg Dario Hedrick APRN.FLAG DECORATOR 08/16/2024 2:36 PM Signed [facility] Subjective Virginia Ralph is a 69 year old female. Patient presents with: Urinary Problem: feeling of having to urinate but not voiding much x 1 day HPI Urinary Frequency and Urgency: - Onset yesterday morning. - Denies dysuria, abdominal pain, pubic pain, back pain, vaginal bleeding, or discharge. - Not sexually active. - Denies recent antibiotic use. - History of UTIs, approximately three episodes in the past. - Drinking cranberry juice to alleviate symptoms. HTN: - Managed with three antihypertensive medications. - Recent BP readin/70 mmHg. No past medical history on file. No past surgical history on file. ALLERGIES Patient has no known allergies. MEDICATIONS amLODIPine (NORVASC) 5 mg tablet Take 5 mg by mouth once daily. fluticasone (FLONASE) 50 mcg/actuation nasal spray hydroCHLOROthiazide 25 mg tablet Take 25 mg by mouth every morning. lisinopril (ZESTRIL) 20 mg tablet Take 20 mg by mouth two times a day. PARoxetine (PAXIL) 10 mg tablet Take 10 mg by mouth once daily. nitrofurantoin monohydrate and macrocrystal (MACROBID) 100 mg capsule Take 1 capsule by mouth two times a day for 5 days. phenazopyridine (PYRIDIUM) 200 mg tablet Take 1 tablet by mouth three times a day as needed. No family history on file. Review of Systems Gastrointestinal: (-) abdominal pain Genitourinary: (+) urinary frequency, (+) urinary urgency, (-) dysuria, (-) vaginal bleeding, (-) vaginal discharge Musculoskeletal: (-) back pain Objective BP 124/70 Pulse 76 Temp 37.3 ?C (99.2 ?F) Resp 16 Wt 70.4 kg (155 lb 3.3 oz) SpO2 95% Physical Exam Vitals and nursing note reviewed. Constitutional: General: She is not in acute distress. Appearance: Normal appearance. She is normal weight. She is not ill-appearing, toxic-appearing or diaphoretic. HENT: Head: Normocephalic and atraumatic. Right Ear: Ear canal and external ear normal. Left Ear: Ear canal and external ear normal. Nose: Nose normal. No congestion or rhinorrhea. Mouth/Throat: Mouth: Mucous membranes are moist. Pharynx: No oropharyngeal exudate or posterior oropharyngeal erythema. Eyes: General: Right eye: No discharge. Left eye: No discharge. Extraocular Movements: Extraocular movements intact. Conjunctiva/sclera: Conjunctivae normal. Pupils: Pupils are equal, round, and reactive to light. Cardiovascular: Rate and Rhythm: Normal rate and regular rhythm. Pulses: Normal pulses. Heart sounds: Normal heart sounds. No murmur heard. No friction rub. Pulmonary: Effort: Pulmonary effort is normal. No respiratory distress. Breath sounds: Normal breath sounds. No stridor. No wheezing, rhonchi or rales. Chest: Chest wall: No tenderness. Abdominal: General: Abdomen is flat. There is no distension. Palpations: Abdomen is soft. There is no mass. Tenderness: There is no abdominal tenderness. There is no right CVA tenderness, left CVA tenderness, guarding or rebound. Hernia: No hernia is present. Musculoskeletal: General: No swelling, tenderness, deformity or signs of injury. Normal range of motion. Cervical back: Normal range of motion and neck supple. No rigidity. Right lower leg: No edema. Left lower leg: No edema. Lymphadenopathy: Cervical: No cervical adenopathy. Skin: General: Skin is warm and dry. Coloration: Skin is not jaundiced or pale. Findings: No bruising, erythema, lesion or rash. Neurological: General: No focal deficit present. Mental Status: She is alert and oriented to person, place, and time. Cranial Nerves: No cranial nerve deficit. Sensory: No sensory deficit. Motor: No weakness. Coordination: Coordination normal. Gait: Gait normal. Psychiatric: Mood and Affect: Mood normal. Behavior: Behavior normal. Thought Content: Thought content normal. Judgment: Judgment normal. General: No acute distress. CV: Normal heart sounds. Resp: Normal breath sounds. {1. Acute cystitis with hematuria (N30.01) - Onset of urinary frequency and urgency began yesterday morning; no dysuria, abdominal pain, or hematuria reported. No recent antibiotic use. - Urinalysis shows hematuria and bacteriuria. - Ordered urine culture. - Initiated Macrobid 100 mg orally BID for 5 days. - Prescribed Pyridium 200 mg orally TID for 2 days to alleviate urinary urgency and frequency; informed patient that it may cause orange discoloration of urine. - Advised to increase fluid intake and avoid cranberry juice with added (more content not included)... Normal [facility] UA DIP, URINE (POC)on 2024 BILIRUBIN UA (POCT) Negative Negative [facility] CLARITY UA (POCT) Cloudy [facility] COLOR UA (POCT) Dark yellow [facility] GLUCOSE UA (POCT) Negative Negative mg/dL [facility] Hemoglobin Ql (U) Large Abnormal Negative [facility] Interpretation and review of laboratory results Abnormal [facility] KETONE UA (POCT) Negative Negative mg/dL [facility] LEUKOCYTES UA (POCT) Small Abnormal Negative [facility] NITRITE UA (POCT) Negative Negative [facility] PH UA (POCT) 7 4.5 - 8.0 [facility] Protein Ql (U) >=300 Abnormal Negative mg/dL [facility] SPECIFIC GRAVITY UA (POCT) 1.02 1.005 - 1.030 [facility] UROBILINOGEN UA (POCT) 0.2 Doris l E.U./dL [facility] Location:[facility], [address] [facility], [place], [address] [facility] POINT OF CARE [facility] SCRN MAMM (CAD)W/HOLLAND BILATo n 03-01-2024 SCRN MAMM (CAD)W/HOLLAND BILAT [facility] Services [address] [place] [address] SCRN MAMM (CAD)W/HOLLAND BILAT MR#: [id number] Acct: [id number] Name: VIRGINIA RALPH Rep #: [id number] : 1955 F 69 From: Vin rust MD PCP: KT Cobos Status: [facility] Study: SCRN MAMM (CAD)W/HOLLAND BILAT Date of Exam: 12/15 Exam# [id number] Ordering Dr: Tosha Hickey [id number] MAMMOGRAPHY - BILATERAL SCREENING REASON FOR EXAM: Female, 69 years old. Routine annual screening examination. PERTINENT HISTORY: Non-contributory. TECHNIQUE: Digital bilateral breast holland (3D mammographic acquisition) in the CC and MLO projections. 2-D mediolateral oblique (MLO) and craniocaudad (CC) views of both breasts were obtained. CAD: Full Field Digital Mammography with Computer Added Detection was performed. COMPARISON: Comparison is made with prior study dated February 25, 2023 and March 06, 2022. FINDINGS: Breast Composition: The breasts are heterogeneously dense, which may obscure small masses. There are no dominant masses or suspicious calcifications. No other significant abnormalities are identified. There has been no significant change since the prior study. BI/SCRN MAMM (CAD)W/HOLLAND BILAT IMPRESSION: Stable bilateral screening mammogram. Yearly follow-up mammogram recommended. (A) ASSESSMENT CATEGORY: BIRADS Category 1: Negative. A letter regarding these results will be sent to the patient by the facility within 30 days. Approximately 10% of breast cancers are not detected by mammography. A normal mammogram should not delay biopsy of a clinically suspicious abnormality. [id number] Electronically Signed: Vin Lucas MD at 13:28 EST , CC: KT Hickey Montessori Paraprofessional: Signed Normal [facility] Absolute lymphocyte countOrd ered By: Tosha Hickey on 09-06-2022 Lymphocytes Auto (Unsp spec) [#/Vol] 1.45 10*3/uL 0.83-4.51 [facility] Basophil percentageOrdered B y: Tosha Hickey on 09-06-2022 Basophils/100 WBC (Bld) 1.2 % 0-1 [facility] Bilirubin [Mass/Vol] 0.80 mg/dL 0.20-1.00 [facility] Comment on above: For patients on eltr ombopag therapy, use of Dimension Brohman TBIL is not recommended. Chloride [Moles/Vol] 95 mmol/L 98-107 [facility] Cholesterol [Mass/Vol] 209 mg/dL <200 [facility] Comment on above: <200 mg/dL Desirable 200-240 mg/dL Borderline >240 mg/dL High Risk Eosinophils/100 WBC (Bld) 5.0 % 0-5 [facility] Glucose [Mass/Vol] 81 mg/dL 74-106 [facility] Neutrophils (Bld) [#/Vol] 2.0 10*3/uL 2.0-7.7 [facility] Neutrophils/100 WBC (Bld) 49.6 % 47-70 [facility] Potassium [Moles/Vol] 3.7 mmol/L 3.5-5.[address] [facility] Protein [Mass/Vol] 7.4 g/dL 6.4-8.2 [facility] Sodium [Moles/Vol] 133 mmol/L 136-145 [facility] Triglyceride [Mass/Vol] 167 mg/dL <199 [facility] Comment on above: The drugs N-Acetylcy steine and Metamizole may falsely depress this assay.Serum Triglycerides Reference Interval Normal <150 mg/dL Borderline high 150 - 199 mg/dL High 200 - 499 mg/dL Very High > or = 500 mg/dL WBC (Bld) [#/Vol] 4.0 10*3/uL 4.4-11.0 [facility] Blood erythrocytes count (nu mber/volume)Ordered By: Tosha Hickey on 09-06-2022 RBC (Bld) [#/Vol] 5.30 10*6/uL 4.2-5.[address] [facility] Blood hemoglobin measurement (mass/volume)Ordered By: Tosha Hickey on 09-06-2022 Hemoglobin (Bld) [Mass/Vol] 15.8 g/dL 12.0-15.0 [facility] Blood lymphocytes/100 leukoc ytesOrdered By: Tosha Hickey on 09-06-2022 Lymphocytes/100 WBC (Bld) 36.2 % 19-41 [facility] Blood monocytes/100 leukocyt esOrdered By: Tosha Hickey on 09-06-2022 Monocytes/100 WBC (Bld) 8.0 % 0-10 [facility] Blood platelet mean volumeOr dered By: Tosha Hickey on 09-06-2022 Platelet mean volume (Bld) [Entitic vol] 9.2 fL 6.2-12.0 [facility] Determination of erythrocyte mean corpuscular volume (MCV)Ordered By: Tosha Hickey on 09-06-2022 MCV (RBC) [Entitic vol] 88.1 fL 81-99 [facility] Hematocrit Auto (Bld) [Volum e fraction]Ordered By: Tosha Hickey on 09-06-2022 Hematocrit (Bld) [Volume fraction] 46.7 % 37-47 [facility] Laboratory - Chemistry and C hemistry - challengeOrdered By: Tosha Hickey on 09-06-2022 ALP [Catalytic activity/Vol] 103 U/L 45-117 [facility] ALT [Catalytic activity/Vol] 24 U/L 13-56 [facility] CO2 [Moles/Vol] 28.0 mmol/L 21.0-32.0 [facility] Globulin (S) [Mass/Vol] 3.4 g/dL 2.2-4.2 [facility] Urea nitrogen/Creatinine [Mass ratio] 10.8 mg/mg 10-20 [facility] Laboratory - Hematology and Cell countsOrdered By: Tosha Hickey on 09-06-2022 Erythrocyte distribution width (RBC) [Entitic vol] 38.3 fL 35.1-43.9 [facility] Erythrocyte distribution width (RBC) [Ratio] 11.9 % 11.6-14.6 [facility] Immature granulocytes/100 WBC (Bld) 0.000 % 0.0-0.9 [facility] Comment on above: IG% - Immature Granu locytes (promyelocytes, myelocytes and metamyelocytes) > 1% indicates that a LEFT SHIFT is Present. MCH (RBC) [Entitic mass] 29.8 pg 27.0-32.0 [facility] Nucleated RBC/100 WBC (Bld) [Ratio] 0 % 0-5 [facility] MCHC Auto (RBC) [Mass/Vol]Or dered By: Tosha Hickey on 09-06-2022 MCHC (RBC) [Mass/Vol] 33.8 g/dL 32-[address] [facility] No Panel InformationOrdered By: Tosha Hickey on 09-06-2022 Estimated GFR (MDRD) Amer 88 mL/min >60 [facility] Comment on above: GFR Calc Estimated GFR (MDRD) Non-Af Amer 73 mL/min >60 [facility] Comment on above: Non- GFR Calc Vitamin D 25-Hydroxy 46.9 ng/mL [facility] Comment on above: Vitamin D 25(OH) Sta tus Range Deficiency <20 ng/mL (50nmol/L) Insufficiency 20 - 30 ng/mL (50 - 75 nmol/L) Sufficiency 30 - 100 ng/mL (75 - 250 nmol/L) Toxicity >100 ng/mL (>250 nmol/L) Platelets bldOrdered By: Luis Hickey on 09-06-2022 Platelets (Bld) [#/Vol] 334 10*3/uL 150-450 [facility] Serum or plasma albumin mikaela urement (mass/volume)Ordered By: Tosha Hickey on 09-06-2022 Albumin [Mass/Vol] 4.0 g/dL 3.2-5.0 [facility] Serum or plasma albumin/glob ulin mass ratioOrdered By: Tosha Hickey on 09-06-2022 Albumin/Globulin [Mass ratio] 1.2 {ratio} 0.9-2.4 [facility] Serum or plasma calcium mikaela urement (mass/volume)Ordered By: Tosha Hickey on 09-06-2022 Calcium [Mass/Vol] 9.4 mg/dL 8.5-10.1 [facility] Serum or plasma cholesterol in HDL measurement (mass/volume)Ordered By: Tosha Hickey on 09-06-2022 Cholesterol in HDL [Mass/Vol] 65 mg/dL >40 [facility] Comment on above: The drugs N-Acetylcy steine and Metamizole may falsely depress this assay. Reference Range HDL <40 mg/dL Low HDL Cholesterol HDL >or= 60 mg/dL High HDL Cholesterol Serum or plasma cholesterol in VLDL measurement (mass/volume)Ordered By: Tosha Hickey on 09-06-2022 Cholesterol in VLDL [Mass/Vol] 33 mg/dL 5-40 [facility] Serum or plasma creatinine m easurement (mass/volume)Ordered By: Tosha Hickey on 09-06-2022 Creatinine [Mass/Vol] 0.83 mg/dL 0.55-1.[address] [facility] Comment on above: The validity of the calculated GFR & GFRAA in patients over 70 years has not been determined. Clinical correlation is essential. Serum or plasma low density lipoprotein (LDL) cholesterol measurement (mass/volume)Ordered By: Tosha Hickey on 09-06-2022 Cholesterol in LDL [Mass/Vol] 111 mg/dL 0-130 [facility] Serum or plasma urea nitroge n measurement (mass/volume)Ordered By: Tosha Hickey on 09-06-2022 Urea nitrogen [Mass/Vol] 9 mg/dL 7-18 [facility] Thin prep Papanicolaou smear with manual screeningOrdered By: Tosha Hickey on 09-06-2022 Thin prep Papanicolaou smear with manual screening 18 U/L 15-37 [facility] Thin prep Papanicolaou smear with manual screening 10 5-15 [facility] No Panel Informationon 09-19 Stool Calprotectin 57 ug/g 0-120 [facility] Work Phone: Comment on above: Concentration Interp retation Follow-Up<16 - 50 ug/g Normal None>50 -120 ug/g Borderline Re-evaluate in 4-6 weeks >120 ug/g Abnormal Repeat as clinically indicatedPerformed at: - [facility] [address] [place], [place] [id number] Director: Jhoan Samuel MD, Phone: [phone] Basophil percentageon 2021 Bilirubin [Mass/Vol] 0.80 mg/dL 0.20-1.00 [facility] Work Phone: Comment on above: For patients on eltr ombopag therapy, use of Dimension Brohman TBIL is not recommended. Chloride [Moles/Vol] 101 mmol/L 98-107 [facility] Work Phone: Glucose [Mass/Vol] 85 mg/dL 74-106 [facility] Work Phone: Potassium [Moles/Vol] 3.4 mmol/L 3.5-5.[address] [facility] Work Phone: Protein [Mass/Vol] 6.8 g/dL 6.4-8.2 [facility] Work Phone: Sodium [Moles/Vol] 137 mmol/L 136-145 [facility] Work Phone: Erythrocyte sedimentation ra janel 09-18-2021 ESR (Bld) [Velocity] 5 mm/h 0-30 [facility] Work Phone: Laboratory - Chemistry and C hemistry - challengeon 09-18-2021 ALP [Catalytic activity/Vol] 96 U/L 45-117 [facility] Work Phone: ALT [Catalytic activity/Vol] 17 U/L 13-56 [facility] Work Phone: CO2 [Moles/Vol] 29.0 mmol/L 21.0-32.0 [facility] Work Phone: Globulin (S) [Mass/Vol] 3.1 g/dL 2.2-4.2 [facility] Work Phone: Urea nitrogen/Creatinine [Mass ratio] 7.3 mg/mg 10-20 [facility] Work Phone: No Panel Informationon 09-18 Endomysial IgA Antibody Negative Negative [facility] Work Phone: Estimated GFR (MDRD) Amer 90 mL/min >60 [facility] Work Phone: Comment on above: GFR Calc Estimated GFR (MDRD) Non-Af Amer 74 mL/min >60 [facility] Work Phone: Comment on above: Non- GFR Calc Serum IgA measurement (units /volume)on 09-18-2021 IgA Qn (S) 177 mg/dL 87-352 [facility] Work Phone: Comment on above: Performed at: [address] [id number] Director: Loi Hernandez PhD, Phone: [phone] Serum or plasma C reactive p rotein measurement (mass/volume)on 09-18-2021 CRP [Mass/Vol] mg/L 0.0-3.0 [facility] Work Phone: Comment on above: C-Reactive Protein ( CRP) provides useful information for thediagnosis, therapy and monitoring of inflammatory processesand associated diseases. For the evaluation of Relative Riskfor Cardiovascular Disease, a High Sensitivity CRP (HSCRP)should be ordered. Serum or plasma albumin mikaela urement (mass/volume)on 09-18-2021 Albumin [Mass/Vol] 3.7 g/dL 3.2-5.0 [facility] Work Phone: Serum or plasma albumin/glob ulin mass ratioon 09-18-2021 Albumin/Globulin [Mass ratio] 1.2 {ratio} 0.9-2.4 [facility] Work Phone: Serum or plasma calcium mikaela urement (mass/volume)on 09-18-2021 Calcium [Mass/Vol] 9.0 mg/dL 8.5-10.1 [facility]: Serum or plasma creatinine m easurement (mass/volume)on 09-18-2021 Creatinine [Mass/Vol] 0.82 mg/dL 0.55-1.02 [facility] Work Phone: Comment on above: The validity of the calculated GFR & GFRAA in patients over 70 years has not been determined. Clinical correlation is essential. Serum or plasma urea nitroge n measurement (mass/volume)on 09-18-2021 Urea nitrogen [Mass/Vol] 6 mg/dL 7-18 [facility] Work Phone: Serum tissue transglutaminas e IgA antibody assay (units/volume)on 09-18-2021 tTG IgA Qn (S) <2 U/mL 0-3 [facility] Work Phone: Comment on above: Negative 0 - 3 Weak Positive 4 - 10 Positive >10 Tissue Transglutaminase (tTG) has been identified as the endomysial antigen. Studies have demonstr- ated that endomysial IgA antibodies have over 99% specificity for gluten sensitive enteropathy. Thin prep Papanicolaou smear with manual screeningon 09-18-2021 Thin prep Papanicolaou smear with manual screening 15 U/L 15-37 [facility] Work Phone: Thin prep Papanicolaou smear with manual screening 7 5-15 [facility] Work Phone: BD BONE DENSITY DEXA AXIAL S KELETONon 09-05-2017 BD BONE DENSITY DEXA AXIAL SKELETON ORIGINALBONE DENSITOMETRY CLINICAL STATEMENT: SCREENING, SCEENING FOR OSTEOPOROSIS COMPARISON: 02/01/2014 T Score Left Femoral Neck: -1.3 BMD (g/cm2) Left Femoral Neck: 0.701 T Score Left Hip: -0.6 ___BMD (g/cm2) Left Hip: 0.871 T Score Lumbar Spine L1-L4: -1.3 BMD (g/cm2) Lumbar Spine L1-L4: 0.907 CONCLUSION: The patient is considered osteopenic based on the left femoral neck which has a T score of -1.3 and the lumbar spine which has a T score of -1.3. BMD Change from previous Hip: No statistically significant change.BMD Change from previous Lumbar Spine: -4.1% % *By the World Health Organization standards: Osteopenia is present when the bone mineral density is greater than 1 standard deviation (SD) but less than 2.5 SDs below a young normal sex matched population. Osteoporosis is present when the bone mineral density is equal to or greater than 2.5 SDs below a young normal sex matched population. Interpreted By: Mac Davis MDPreliminary Report By: Mac Davis MDElectronically Signed By: Mac Davis MD Dictated Date: 09/05/2017 11:26:51 AM Prelim Date: 09/05/2017 11:26:51 AM Sign Date: 09/05/2017 11:29:28 AM Normal [facility] ([place]) MA MAMMOGRAM SCREENING BILAT ERAL W/TOMOon 09-05-2017 MA MAMMOGRAM SCREENING BILATERAL W/HOLL[place] ORIGINALFROM:[address] [address]Xyjui: [phone] PROCEDURE FOR:[place] [place], [place] [address]Nqcl: [phone]#: [id number]#: [id number]#: [id number]: 1955ge: 62 TO:CHANDRIKA THIBODEAUX [address] [place] [address] #[id number] DIGITAL SCREENING MAMMOGRAM 3D/2D WITH CAD WITH MEDIOLATERAL OBLIQUE CRANIOCAUDAL: 09/05/2017Comparison is made to exams dated: 08/13/2016 mammogram and 06/02/2015 mammogram - [facility]. The tissue of both breasts is heterogeneously dense. Current study was also evaluated with a Computer Aided Detection (CAD) system. No significant masses, calcifications, or other findings are seen in either breast. There has been no significant interval change. IMPRESSION: NEGATIVEThere is no mammographic evidence of malignancy. A 1 year screening mammogram is recommended. I have personally reviewed the images of the examination and agree with the findings and interpretation. Gatito Ulloa M.D., F.Caterina.CAfshanR. QUINTON Bahp,tone/moustapha:2017 12:38:20 Corporate Director: USMAN Chaudhari)(M), [facility]: Normal BI-RADS 1&2 Mammogram BI-RADS: 1 Negative Normal [facility] ([place]) DHEASon 08-20-2017 DHEA-SO4 48 mcg/dL Normal 35-430 [facility] ([place]) Comment on above: Performed By: #### E 2, B12, VIDH, PROG, TESTO, DHEAS ####[address] [address] B12on 08-14-2017 Cobalamins (Vitamin B12) 375 pg/mL Normal 211-911 [facility] ([place]) Comment on above: Performed By: #### E 2, B12, VIDH, PROG, TESTO, DHEAS ####[address] [address] E2on 08-14-2017 Estradiol Level 14 pg/mL Normal [facility] ([place]) Comment on above: Result Comment: Adul t Female E2 Reference Ranges (03/29/11): Follicular phase 21 - 165 pg/mL Midcycle 50 - 367 pg/mL Luteal phase 40 - 259 pg/mL Post menopausal 11 - 58 pg/mL Performed By: #### E 2, B12, VIDH, PROG, TESTO, DHEAS ####[address] [address] PROGon 08-14-2017 Progesterone Level <0.2 Normal [facility] ([place]) Comment on above: Result Comment: Adul t Female Progesterone Reference Ranges (02/22/99): Follicular phase 0.2 - 1.4 ng/mL Luteal phase 3.3 - 25.6 ng/mL Mid-Luteal phase 4.4 - 28.0 ng/mL Postmenopausal 0.2 - 0.7 ng/mlAdult Male: 0.3 - 1.2 ng/mL Performed By: #### E 2, B12, VIDH, PROG, TESTO, DHEAS ####[place] [address] TESTOon 08-14-2017 Testosterone Lvl <10.0 Low 14.0-76.0 [facility] ([place]) Comment on above: Performed By: #### E 2, B12, VIDH, PROG, TESTO, DHEAS ####[place] [address] VIDHon 08-14-2017 Vit. D 25-Hydroxy 17 ng/mL Normal [facility] ([place]) Comment on above: Result Comment: Inte rpretive Values Based on Total 25(OH)D: Severe Deficiency <20 ng/mL Mild to Moderate Deficiency 20-30 ng/mL Optimum Levels 30-100 ng/mL Toxicity Possible >100 ng/mL Performed By: #### E 2, B12, VIDH, PROG, TESTO, DHEAS ####[place] [address] Vital Signs Date Time Vital Sign Value Performing Clinician Francisca sol 08-16-2024 14:19-0400 Body temperature 99.19 [degF] Dario Hedrick APRN.FLAG DECORATOR Work Phone: [facility] 08-16-2024 14:[id number] Body weight 70.4 kg Dario Hedrick APRN.CNP Work Phone: [facility] 08-16-2024 14:19-0400 Diastolic blood pressure 70 mm[Hg] Dario Hedrick APRN.FLAG DECORATOR Work Phone: [facility] 08-16-2024 14:19-0400 Heart rate 76 /min Dario Hedrick [employer].FLAG DECORATOR Work Phone: [facility] 08-16-2024 14:19-0400 Respiratory rate 16 /min Dario Hedrick [employer].FLAG DECORATOR Work Phone: [facility] 08-16-2024 14:19-0400 SaO2% (BldA) [Mass fraction] 95 % Dario Hedrick [employer].FLAG DECORATOR Work Phone: [facility] 08-16-2024 14:19-0400 Systolic blood pressure 124 mm[Hg] Dario Hedrick [employer].FLAG DECORATOR Work Phone: [facility] Encounters Encounter Date Encounter Type Care Provider Facility Start: 01-03-2025 ambulatory Tosha Hickey Facility:[facility] Start: 12-09-2024 Registered Recurring Tosha Hickey RECORD FILING CLERK -C -Physical Therapy Work Phone: Start: 12-06-2024 End: 12-06-2024 ambulatory Tosha Hickey RECORD FILING CLERK-C Work Phone: -[facility] [place] Start: 12-06-2024 End: 12-06-2024 Patient encounter procedure Tosha Hickey RECORD FILING CLERK-C -[facility] [place] Work Phone: Start: 12-06-2024 End: 12-06-2024 ambulatory Tosha Hickey Facility:[facility] Start: 09-09-2024 End: 09-09-2024 ambulatory Tosha Hickey RECORD FILING CLERK-C Work Phone: [facility] Work Phone: Start: 09-09-2024 End: 09-09-2024 Patient encounter procedure Tosha Hickey RECORD FILING CLERK-C -[facility] [place] Work Phone: Start: 09-09-2024 End: 09-09-2024 ambulatory Tosha Hickey Facility:[facility] Start: 09-06-2024 End: 09-06-2024 ambulatory Tosha Hickey RECORD FILING CLERK-C Work Phone: [facility] Work Phone: Start: 09-06-2024 End: 09-06-2024 Patient encounter procedure Tosha Hickey RECORD FILING CLERK-C -[facility] [place] [facility] Start: 09-06-2024 End: 09-06-2024 ambulatory [facility] Facility:[facility] Start: 08-23-2024 End: 08-23-2024 ambulatory Tosha Hickey RECORD FILING CLERK-C Work Phone: [facility] Work Phone: Start: 08-23-2024 End: 08-23-2024 Patient encounter procedure Tosha Hickey RECORD FILING CLERK-C -[facility] [place] Work Phone: Start: 08-23-2024 End: 08-23-2024 ambulatory [facility] Facility:[facility] Start: 08-20-2024 End: 08-20-2024 ambulatory Tosha Hickey RECORD FILING CLERK-C Work Phone: [facility] Work Phone: Start: 08-20-2024 End: 08-20-2024 Patient encounter procedure Tosha Hikcey RECORD FILING CLERK-C -[facility] [place] Work Phone: Start: 08-20-2024 End: 08-20-2024 ambulatory [facility] Facility:[facility] Start: 08-18-2024 End: 08-18-2024 Follow-up encounter Dario Hedrick APRN.FLAG DECORATOR Work Phone: [facility] Comment on above: Results Start: 08-16-2024 End: 08-16-2024 Patient encounter procedure Dario Hedrick [employer].FLAG DECORATOR Work Phone: [facility] Comment on above: Acute cystitis with hematuria (Primary Dx) Start: 08-16-2024 End: 08-16-2024 ambulatory DARIO HEDRICK Facility:[facility] Start: 03-01-2024 End: 03-01-2024 ambulatory [facility] Facility:[facility] Start: 02-25-2023 End: 02-25-2023 ambulatory [facility] Work Phone: Start: 02-25-2023 End: 02-25-2023 Patient encounter procedure [facility]-Outpatient Breast Imaging Work Phone: Start: 09-06-2022 End: 09-06-2022 ambulatory [facility] Work Phone: Start: 09-06-2022 End: 09-06-2022 Patient encounter procedure [facility]-Laboratory, [place] Start: 03-06-2022 End: 03-06-2022 ambulatory [facility] Work Phone: Start: 03-06-2022 End: 03-06-2022 Patient encounter procedure [facility]-Outpatient Breast Imaging Start: 09-19-2021 End: 09-19-2021 Patient encounter procedure [facility]-Laboratory, [facility] Start: 09-18-2021 End: 09-18-2021 Patient encounter procedure [facility]-Laboratory, [place] Start: 09-05-2017 End: 09-06-2017 Ambulatory CHANDRIKA THIBODEAUX Facility:[facility] Start: 08-14-2017 End: 08-15-2017 Ambulatory CHANDRIKA THIBODEAUX Facility:[facility] Procedures Date Procedure Procedure Detail Performing Clinician Start: 12-06-2024 Radiologic exam knee complete 4/more views Tosha Hickey RECORD FILING CLERK-C Work Phone: Start: 09-09-2024 Follicle stimulating hormone measurement Tosha Hickey RECORD FILING CLERK-C Work Phone: Comment on above: FEMALE:Follicular: 1 .4 - 18.1 mIU/mLMidcycle: 3.4 - 33.4 mIU/mLLuteal: 1.5 - 9.1 mIU/mLPost Menopause: 23.0 - 116.3 mIU/mLMALE: 1.4 - 18.1 mIU/mL Start: 09-09-2024 Luteinizing hormone measurement Tosha Hickey RECORD FILING CLERK-C Work Phone: Comment on above: FEMALE:Follicular: 1 .9-12.5 mIU/mLMidcycle: 8.7-76.3 mIU/mLLuteal: 0.5-16.9 mIU/mLPost Menopause: 15.9-54.0 mIU/mLMALE:20-70 Years: 1.5-9.3 mIU/mL>70 Years: 3.1-34.6 mIU/mL Start: 09-09-2024 Serum progesterone measurement Tosha Hickey RECORD FILING CLERK-C Work Phone: Comment on above: Follicular phase 0.1 - 0.9 Luteal phase 1.8 - 23.9 Ovulation phase 0.1 - 12.0 First trimester 11.0 - 44.3 Second trimester 25.4 - 83.3 Third trimester 58.7 - 214.0 Postmenopausal 0.0 - 0.1Performed at: [facility] [place] [id number] Director: Loi Hernandez PhD, Phone: [phone] Start: 08-23-2024 Urine culture Tosha ca RECORD FILING CLERK-C Work Phone: Start: 08-23-2024 Lyme disease test Samy Hickey RECORD FILING CLERK-C Work Phone: Start: 08-23-2024 Lyme immunoblot test Ra phil Hickey RECORD FILING CLERK-C Work Phone: Start: 08-23-2024 X-ray of chest, PA a nd lateral views Tosha Hickey RECORD FILING CLERK-C Work Phone: Start: 08-20-2024 Vitamin D, 25-hydrox y measurement Tosha Hickey RECORD FILING CLERK-C Work Phone: Comment on above: Vitamin D StatusDefi ciency: <20 ng/mL (50nmol/L)Insufficiency: 20-30 ng/mL (50-75 nmol/L)Sufficiency: 30-100 ng/mL (75-250 nmol/L)Toxicity: >100 ng/mL (>250 nmol/L) Start: 08-16-2024 Urnls dip stick/tabl et rgnt auto w/o microscopy Dario Hedrick [employer].FLAG DECORATOR Work Phone: Start: 02-25-2023 Screening mammography Start: 03-06-2022 Screening mammography Plan of Treatment Date Care Activity Detail Author Start: 01-12-2031 RSV Vaccine (1 - 1-d ose 75+ series) RSV Vaccine (1 - 1-dose 75+ series) [facility] Start: 09-09-2024 Serum progesterone measurement [facility] Start: 09-06-2024 Covid-19 Vaccine ( season) Covid-19 Vaccine ( season) [facility] Start: 08-23-2024 Bacteria identified in Urine by Culture Urine Culture [facility] Start: 08-23-2024 Borrelia burgdorferi blot test [facility] Start: 08-23-2024 [facility] Start: 03-24-2024 Advance Directive Discussion Advance Directive Discussion [facility] Start: 09-19-[address] [facility] Work Phone: Start: 01-12-2021 Screening for osteoporosis Bone Dens ity Screening [facility] Start: 12-16-2013 Screening for malign ant neoplasm of breast Mammogram Screening [facility] Start: 06-23-2006 Urine microalbumin profile DTa P,Tdap,Td Vaccine (1 - Tdap) [facility] Start: 01-12-2006 Pneumococcal Vaccine : 50+ (1 of 1 - PCV) Pneumococcal Vaccine: 50+ (1 of 1 - PCV) [facility] Start: 01-12-2006 Shingrix Vaccine (1 of 2) Perez grix Vaccine (1 of 2) [facility] Start: 01-12-2001 Diabetes Screening Diabetes Screenin g [facility] Start: 01-12-2001 Lipid panel Lipid Screening [facility] Start: 01-12-2001 Screening for malign ant neoplasm of colon [facility] Start: 01-12-1974 Anxiety Screening Anxiety Screening [facility] Start: 01-12-1974 Depression Screening Depression Scre ening [facility] Start: 01-12-1974 Hepatitis C screening Hepatitis C Me lawrence [facility] Bacteria identified in Urine by Culture BACTERIAL CULTURE, URINE Microbiology Routine Acute cystitis with hematuria Ordered: 08/16/2024 [facility] Work Phone: Comment on above: Ordered: 08/16/2024 Laboratory data interpretation [facility] Measurement of immunoglobulin A in serum specimen [facility] Work Phone: Tissue transglutamin ase IgA Ab [Units/volume] in Serum [facility] Work Phone: Urine culture [facility] Payers Date Payer Category Payer Self-pay [id number] 2023 Medicare [place] Care[place] [employer] [place] [id number] 2023 Private Health [place] [facility] [place] 2] [id number] 1999 Unknown [id number] Medicare [id number] Private Health Insurance [facility] [id number] Unknown [id number] Unknown [id number] Unknown [id number] Unknown [id number] Unknown [id number] Unknown [id number] Unknown [id number] 462 Social History Date Type Detail Facility Tobacco smoking status NHIS Unknown if ever smoked [facility] Work Phone: Start: 1955 Sex Assigned At Female [facility] Tobacco smoking status UTIS Tobacco smoking consumption unknown [facility] Start: 1955 Sex assigned at Not on file [facility] Gender identity Not on file [facility] Clinical Notes 08-16-2024 to 12-08-2024 Telephone Encounter - Velma Lamb RN - 08/18/2024 10:06 AM EDTTelephone Encounter - Velma Lamb RN - 08/18/2024 10:06 AM Dario Ngo APRN.FLAG DECORATOR - 08/16/2024 2:33 PM EDT Note Date & Type Note Facility 12-08-2024 Radiology Diagnostic study note [facility] Imaging Services [address], [place] [address] Knee 4 or More Views MR#: [id number] Acct: [id number] Name: VIRGINIA RALPH Rep #: [id number] : 1955 F 69 From: Fiorella Cowan MD PCP: KT Cobos Status: REG CLI Study:Knee 4 or More Views Date of Exam: 12/06/24 Exam# [id number] Ordering Dr: Ra phil Hickey NP-Aris PROCEDURE: KNEE 4 OR MORE VIEWS 12/06/2024 REASON FOR EXAM: PAIN TECHNIQUE: Procedure Code: RADKN Modality: DX Procedure: KNEE 4 OR MORE VIEWS Laterality: Left COMPARISON: None FINDINGS: Bones: No fracture Joints: Normal Effusion: Clear Soft tissues: Soft tissue swelling. Other: No foreign body RAD/Knee 4 or More Views IMPRESSION: No acute abnormality Reading Location: [id number] CC: RECORD FILING CLERK-C Tosha Hickey ~ Montessori Paraprofessional: Signed [facility] 08-23-2024 Radiology Diagnostic study note [facility] Imaging Services [address] [place] [address] Chest PA and Lateral MR#: [id number] Acct: [id number] Name: VIRGINIA RALPH Rep #: [id number] : 1955 F 69 From: Liudmila Wright MD PCP: KT Cobos Status: REG CLI Study:Chest PA and Lateral Date of Exam: 08/23/24 Exam# [id number] Ordering Dr: Ra phil Hickey EXAM: XR Chest, 2 Views CLINICAL INDICATION: SOB TECHNIQUE: Frontal and lateral views of the chest. COMPARISON: No relevant prior studies available. FINDINGS: LUNGS AND PLEURAL SPACES: Unremarkable. No consolidation. No pneumothorax. HEART: Unremarkable. No cardiomegaly. MEDIASTINUM: Unremarkable. Normal mediastinal contour. BONES/JOINTS: Unremarkable. No acute fracture. RAD/Chest PA and Lateral IMPRESSION: No acute cardiopulmonary process. Reading Location[facility] CC: RECORD FILING CLERK-C Tosha Hickey ~ Montessori Paraprofessional: Signed [facility] 08-18-2024 Telephone encounter Note Patient notified of results and provider's instructions. Patient verbalizes understanding. Velma Lamb RN [facility] 08-18-2024 Miscellaneous Notes Patient notified of results and provider's instructions. Patient verbalizes understanding. Velma Lamb RN Left VM instructing patient to return call to receive results. Kavita Barnett MA Urine culture reveals POSITIVE bacterial growth. ATB selected is appropriate. Complete Follow up with PCP Please advise documented in this encounter [facility] 08-18-2024 Telephone encounter Note Left VM instructing patient to return call to receive results. Kavita Barnett MA [facility] 08-18-2024 Telephone encounter Note Urine culture reveals POSITIVE bacterial growth. ATB selected is appropriate. Complete Follow up with PCP Please advise [facility] 08-16-2024 Note HNO ID: [id number] Author: DARIO HEDRICK APRN.JEY Service: ? Author Type: Nurse Practitioner Type: Progress Notes Filed: 08/16/2024 14:36 Note Text: [facility] Subjective Virginia Ralph is a 69 year old female. Patient presents with: Urinary Problem: feeling of having to urinate but not voiding much x 1 day HPI Urinary Frequency and Urgency: - Onset yesterday morning. - Denies dysuria, abdominal pain, pubic pain, back pain, vaginal bleeding, or discharge. - Not sexually active. - Denies recent antibiotic use. - History of UTIs, approximately three episodes in the past. - Drinking cranberry juice to alleviate symptoms. HTN: - Managed with three antihypertensive medications. - Recent BP readin/70 mmHg. No past medical history on file. No past surgical history on file. ALLERGIES Patient has no known allergies. MEDICATIONS amLODIPine (NORVASC) 5 mg tablet Take 5 mg by mouth once daily. fluticasone (FLONASE) 50 mcg/actuation nasal spray hydroCHLOROthiazide 25 mg tablet Take 25 mg by mouth every morning. lisinopril (ZESTRIL) 20 mg tablet Take 20 mg by mouth two times a day. PARoxetine (PAXIL) 10 mg tablet Take 10 mg by mouth once daily. nitrofurantoin monohydrate and macrocrystal (MACROBID) 100 mg capsule Take 1 capsule by mouth two times a day for 5 days. phenazopyridine (PYRIDIUM) 200 mg tablet Take 1 tablet by mouth three times a day as needed. No family history on file. Review of Systems Gastrointestinal: (-) abdominal pain Genitourinary: (+) urinary frequency, (+) urinary urgency, (-) dysuria, (-) vaginal bleeding, (-) vaginal discharge Musculoskeletal: (-) back pain Objective BP 124/70 Pulse 76 Temp 37.3 ?C (99.2 ?F) Resp 16 Wt 70.4 kg (155 lb 3.3 oz) SpO2 95% Physical Exam Vitals and nursing note reviewed. Constitutional: General: She is not in acute distress. Appearance: Normal appearance. She is normal weight. She is not ill-appearing, toxic-appearing or diaphoretic. HENT: Head: Normocephalic and atraumatic. Right Ear: Ear canal and external ear normal. Left Ear: Ear canal and external ear normal. Nose: Nose normal. No congestion or rhinorrhea. Mouth/Throat: Mouth: Mucous membranes are moist. Pharynx: No oropharyngeal exudate or posterior oropharyngeal erythema. Eyes: General: Right eye: No discharge. Left eye: No discharge. Extraocular Movements: Extraocular movements intact. Conjunctiva/sclera: Conjunctivae normal. Pupils: Pupils are equal, round, and reactive to light. Cardiovascular: Rate and Rhythm: Normal rate and regular rhythm. Pulses: Normal pulses. Heart sounds: Normal heart sounds. No murmur heard. No friction rub. Pulmonary: Effort: Pulmonary effort is normal. No respiratory distress. Breath sounds: Normal breath sounds. No stridor. No wheezing, rhonchi or rales. Chest: Chest wall: No tenderness. Abdominal: General: Abdomen is flat. There is no distension. Palpations: Abdomen is soft. There is no mass. Tenderness: There is no abdominal tenderness. There is no right CVA tenderness, left CVA tenderness, guarding or rebound. Hernia: No hernia is present. Musculoskeletal: General: No swelling, tenderness, deformity or signs of injury. Normal range of motion. Cervical back: Normal range of motion and neck supple. No rigidity. Right lower leg: No edema. Left lower leg: No edema. Lymphadenopathy: Cervical: No cervical adenopathy. Skin: General: Skin is warm and dry. Coloration: Skin is not jaundiced or pale. Findings: No bruising, erythema, lesion or rash. Neurological: General: No focal deficit present. Mental Status: She is alert and oriented to person, place, and time. Cranial Nerves: No cranial nerve deficit. Sensory: No sensory deficit. Motor: No weakness. Coordination: Coordination normal. Gait: Gait normal. Psychiatric: Mood and Affect: Mood normal. Behavior: Behavior normal. Thought Content: Thought content normal. Judgment: Judgment normal. General: No acute distress. CV: Normal heart sounds. Resp: Normal breath sounds. {1. Acute cystitis with hematuria (N30.01) - Onset of urinary frequency and urgency began yesterday morning; no dysuria, abdominal pain, or hematuria reported. No recent antibiotic use. - Urinalysis shows hematuria and bacteriuria. - Ordered urine culture. - Initiated Macrobid 100 mg orally BID for 5 days. - Prescribed Pyridium 200 mg orally TID for 2 days to alleviate urinary urgency and frequency; informed patient that it may cause orange discoloration of urine. - Advised to increase fluid intake and avoid cranberry juice with added sugars. - Patient should experience symptom relief within 24 hours. and Recording using [employer] software for draft documentation of the visit was discussed with the patient/authorized automotive leasing sales representative; all questions welcomed and answered. Patient/authorized automotive leasing sales representative agr (more content not included)... [facility] 08-16-2024 History of Presen t illness Narrative [facility] Subjective Virginia Ralph is a 69 year old female. Patient presents with: Urinary Problem: feeling of having to urinate but not voiding much x 1 day HPI Urinary Frequency and Urgency: - Onset yesterday morning. - Denies dysuria, abdominal pain, pubic pain, back pain, vaginal bleeding, or discharge. - Not sexually active. - Denies recent antibiotic use. - History of UTIs, approximately three episodes in the past. - Drinking cranberry juice to alleviate symptoms. HTN: - Managed with three antihypertensive medications. - Recent BP readin/70 mmHg. No past medical history on file. No past surgical history on file. ALLERGIES Patient has no known allergies. MEDICATIONS amLODIPine (NORVASC) 5 mg tablet Take 5 mg by mouth once daily. fluticasone (FLONASE) 50 mcg/actuation nasal spray hydroCHLOROthiazide 25 mg tablet Take 25 mg by mouth every morning. lisinopril (ZESTRIL) 20 mg tablet Take 20 mg by mouth two times a day. PARoxetine (PAXIL) 10 mg tablet Take 10 mg by mouth once daily. nitrofurantoin monohydrate and macrocrystal (MACROBID) 100 mg capsule Take 1 capsule by mouth two times a day for 5 days. phenazopyridine (PYRIDIUM) 200 mg tablet Take 1 tablet by mouth three times a day as needed. No family history on file. Review of Systems Gastrointestinal: (-) abdominal pain Genitourinary: (+) urinary frequency, (+) urinary urgency, (-) dysuria, (-) vaginal bleeding, (-) vaginal discharge Musculoskeletal: (-) back pain Objective BP 124/70 Pulse 76 Temp 37.3 C (99.2 F) Resp 16 Wt 70.4 kg (155 lb 3.3 oz) SpO2 95% Physical Exam Vitals and nursing note reviewed. Constitutional: General: She is not in acute distress. Appearance: Normal appearance. She is normal weight. She is not ill-appearing, toxic-appearing or diaphoretic. HENT: Head: Normocephalic and atraumatic. Right Ear: Ear canal and external ear normal. Left Ear: Ear canal and external ear normal. Nose: Nose normal. No congestion or rhinorrhea. Mouth/Throat: Mouth: Mucous membranes are moist. Pharynx: No oropharyngeal exudate or posterior oropharyngeal erythema. Eyes: General: Right eye: No discharge. Left eye: No discharge. Extraocular Movements: Extraocular movements intact. Conjunctiva/sclera: Conjunctivae normal. Pupils: Pupils are equal, round, and reactive to light. Cardiovascular: Rate and Rhythm: Normal rate and regular rhythm. Pulses: Normal pulses. Heart sounds: Normal heart sounds. No murmur heard. No friction rub. Pulmonary: Effort: Pulmonary effort is normal. No respiratory distress. Breath sounds: Normal breath sounds. No stridor. No wheezing, rhonchi or rales. Chest: Chest wall: No tenderness. Abdominal: General: Abdomen is flat. There is no distension. Palpations: Abdomen is soft. There is no mass. Tenderness: There is no abdominal tenderness. There is no right CVA tenderness, left CVA tenderness, guarding or rebound. Hernia: No hernia is present. Musculoskeletal: General: No swelling, tenderness, deformity or signs of injury. Normal range of motion. Cervical back: Normal range of motion and neck supple. No rigidity. Right lower leg: No edema. Left lower leg: No edema. Lymphadenopathy: Cervical: No cervical adenopathy. Skin: General: Skin is warm and dry. Coloration: Skin is not jaundiced or pale. Findings: No bruising, erythema, lesion or rash. Neurological: General: No focal deficit present. Mental Status: She is alert and oriented to person, place, and time. Cranial Nerves: No cranial nerve deficit. Sensory: No sensory deficit. Motor: No weakness. Coordination: Coordination normal. Gait: Gait normal. Psychiatric: Mood and Affect: Mood normal. Behavior: Behavior normal. Thought Content: Thought content normal. Judgment: Judgment normal. General: No acute distress. CV: Normal heart sounds. Resp: Normal breath sounds. {1. Acute cystitis with hematuria (N30.01) - Onset of urinary frequency and urgency began yesterday morning; no dysuria, abdominal pain, or hematuria reported. No recent antibiotic use. - Urinalysis shows hematuria and bacteriuria. - Ordered urine culture. - Initiated Macrobid 100 mg orally BID for 5 days. - Prescribed Pyridium 200 mg orally TID for 2 days to alleviate urinary urgency and frequency; informed patient that it may cause orange discoloration of urine. - Advised to increase fluid intake and avoid cranberry juice with added sugars. - Patient should experience symptom relief within 24 hours. and Recording using [employer] software for draft documentation of the visit was discussed with the patient/authorized automotive leasing sales representative; all questions welcomed and answered. Patient/authorized automotive leasing sales representative agreed to proceed History and Record Review External record(s) reviewed: prior inpatient record and prior outpatient record. Disposition The patient was discharged. Procedures documented in this encounter [facility] Evaluation note No assessment inform ation available [facility] Work Phone: Evaluation note Diagnosis Acute cystitis with hematuria- Primary Acute cystitis documented in this encounter [facility] (narrative)No reason for referral [facility] Work Phone: Summary Purpose Family History No Family History Records FoundNo Family History Records FoundNo Family History Records Found Advance Directives No Advanced Directives Records Found Advance Directive Response Recorded Date/ Time Advance Directives Yes January 24, 2014 8:48am Living Will Yes January 24 8:48am Power of Sheet Fed Printer Yes January 24, 2014 8:48am Advance Directive Response Recorded Date/ Time Advance Directives Yes January 24, 2014 7:48am Living Will Yes January 24 7:48am Power of Sheet Fed Printer Yes January 24, 2014 7:48am Advance Directive Response Recorded Date/ Time Advance Directives Yes January 24, 2014 8:48am Chief Complaint and Reason for Visit Chief Complaint SEE ORDER- LABS STOOL- DIARRHEA Chief Complaint SCREENING Chief Complaint SCREEN Chief Complaint Admit Date SHORTNESS OF BREATH August 23, 2024 11:21 am Chief Complaint Admit Date SHORTNESS OF BREATH August 23, 2024 11:21 am LAB September 09, 2024 4:16 pm Chief Complaint Admit Date LAB September 09, 2024 4:16 pm LEFT KNEE PAIN December 06, 2024 4:28pm L KNEE PAIN. RX HERE December 09 9:16am Additional Source Comments INFORMATION SOURCE (unrecogn ized section and content) DATE CREATED AUTHOR 09/08/2017 [facility] ([place]) DATE CREATED AUTHOR AUTHOR'S ORGANIZ ATION 08/20/2024 [facility] DATE CREATED AUTHOR AUTHOR'S ORGANIZ ATION 01/04/2025 [facility] Goals (unrecognized section and content) Goals may be documented in a n alternate sectionGoals may be documented in an alternate sectionGoals may be documented in an alternate sectionGoals may be documented in an alternate sectionGoals may be documented in an alternate sectionGoals may be documented in an alternate sectionGoals may be documented in an alternate sectionGoals may be documented in an alternate sectionGoals may be documented in an alternate sectionGoals may be documented in an alternate section Care Teams (unrecognized sec tion and content) Team Status: Active Member Role Status Dates Dr. Will Daevy MD Family Provider Active KT Cobos Primary Care Provider Active Team Status: Inactive Member Role Status Dates KT Cobos Primary Care Provide r, Attending Provider, Referring Provider Active Team Status: Inactive Member Role Status Dates KT Cobos Primary Care Provider Active KT TIJERINA Attending Provider, Referring Provider Active Team Status: Inactive Member Role Status Dates KT Cobos Primary Care Provider Active Start: August 20, 2024 End: August 20, 2024 Tosha Hickey RECORD FILING CLERK-C Attending Provider Active St art: August 20, 2024 End: August 20, 2024 Tosha Hickey RECORD FILING CLERK-C Referring Provider Active St art: August 20, 2024 End: August 20, 2024 Team Status: Inactive Member Role Status Dates Tosha Hickey RECORD FILING CLERK-C Primary Care Provider Active Start: August 23, 2024 End: August 23, 2024 Tosha Hickey RECORD FILING CLERK-C Attending Provider Active St art: August 23, 2024 End: August 23, 2024 Tosha Hickey RECORD FILING CLERK-C Referring Provider Active St art: August 23, 2024 End: August 23, 2024 Team Status: Active Member Role Status Dates Tosha Hickey RECORD FILING CLERK-C Primary Care Provider Active Start: August 23, 2024 Tosha Hickey RECORD FILING CLERK-C Attending Provider Active St art: August 23, 2024 Tosha Hickey RECORD FILING CLERK-C Referring Provider Active St art: August 23, 2024 Team Status: Active Member Role Status Dates Tosha Hickey RECORD FILING CLERK-C Primary Care Provider Active Team Status: Inactive Member Role Status Dates Tosha Hickey RECORD FILING CLERK-C Primary Care Provider Active Start: September 06, 2024 End: September 06, 2024 Tosha Hickey RECORD FILING CLERK-C Attending Provider Active St art: September 06, 2024 End: September 06, 2024 Team Status: Active Member Role Status Dates Tosha Hickey RECORD FILING CLERK-C Primary Care Provider Active Start: September 09, 2024 Tosha Hickey RECORD FILING CLERK-C Attending Provider Active St art: September 09, 2024 Tsoha Hickey RECORD FILING CLERK-C Referring Provider Active St art: September 09, 2024 Team Status: Inactive Member Role Status Dates Tosha Hickey RECORD FILING CLERK-C Primary Care Provider Active Start: September 09, 2024 End: September 09, 2024 Tosha Hickey RECORD FILING CLERK-C Attending Provider Active St art: September 09, 2024 End: September 09, 2024 Tosha Hickey RECORD FILING CLERK-C Referring Provider Active St art: September 09, 2024 End: September 09, 2024 Team Status: Active Member Role/Relationship Status Dates Tosha Hickey RECORD FILING CLERK-C Primary care physician Active Team Status: Inactive Member Role/Relationship Status Dates Tosha Ruperto , RECORD FILING CLERK-C Primary care physician Active Start: September 06, 2024 End: September 06, 2024 Tosha Hickey , RECORD FILING CLERK-C Attending physician Active S tart: September 06, 2024 End: September 06, 2024 Team Status: Inactive Member Role/Relationship Status Dates Tosharuthann Hickey , RECORD FILING CLERK-C Primary care physician Active Start: September 09, 2024 End: September 09, 2024 Tosha Hickey , RECORD FILING CLERK-C Attending physician Active S tart: September 09, 2024 End: September 09, 2024 Tosha Hickey , RECORD FILING CLERK-C Referring Provider Active St art: September 09, 2024 End: September 09, 2024 Team Status: Inactive Member Role/Relationship Status Dates Tosharuthann Hickey , RECORD FILING CLERK-C Primary care physician Active Start: December 06, 2024 End: December 06, 2024 Tosha Hickey , RECORD FILING CLERK-C Attending physician Active S tart: December 06, 2024 End: December 06, 2024 Tosha Hickey , RECORD FILING CLERK-C Referring Provider Active St art: December 06, 2024 End: December 06, 2024 Team Status: Active Member Role/Relationship Status Dates Tosha Hickey , RECORD FILING CLERK-C Primary care physician Active Start: December 09, 2024 Tosha Hickey , RECORD FILING CLERK-C Attending physician Active S tart: December 09, 2024 Tohsaruthann Hickey , RECORD FILING CLERK-C Referring Provider Active St art: December 09, 2024 Source Comments (unrecognize d section and content) In the event this informatio n is protected by the Federal Confidentiality of Alcohol and Drug Abuse Patient Records regulations: The Federal rules restrict any use of the information to criminally investigate or prosecute any alcohol or drug abuse patient.[facility] Center[facility] the event this information is protected by the Federal Confidentiality of Alcohol and Drug Abuse Patient Records regulations: The Federal rules restrict any use of the information to criminally investigate or prosecute any alcohol or drug abuse patient.[facility] Reason for Visit (unrecogniz ed section and content) Reason Comments Urinary Problem feeling of having to urinate but not voiding much x 1 day Reason Onset Date Comments Results 08/18/2024 FOR RECORDS PERTAINING TO PATIENTS WHO ARE OR HAVE BEEN ENROLLED IN A CHEMICAL DEPENDENCY/SUBSTANCEABUSE PROGRAM, SOME INFORMATION MAY BE OMITTED. This clinical summary was aggregated from multiple sources. Caution should be exercised in using it in the provision of clinical care. This summary normalizes information from multiple sources, and as a consequence, information in this document may materially change the coding, format and clinical context of patient data. In addition, data may be omitted in some cases. CLINICAL DECISIONS SHOULD BE BASED ON THE PRIMARY CLINICAL RECORDS. [facility]. provides no warranty or guarantee of the accuracy or completeness of information in this document.
[2025-02-03 10:29] LABS: Hematocrit 43.0 % (37-47); Hemoglobin 14.8 g/dL (12.0-15.0); Immature Granulocytes Count 0.000 X10^3/uL (0.0-0.0); Mean Corp Hgb Conc 34.4 g/dL (32-36); Mean Corpuscular Volume 86.5 fL (81-99); Mean Platelet Vol. 9.5 fl (6.2-12.0); NRBC Flagged by Analyzer 0 % (0-5); Platelet Count 346 K/mm3 (150-450); RBC Distribution Width CV 11.5 % (11.6-14.6); RBC Distribution Width SD 36.2 fl (35.1-43.9); Red Blood Count 4.97 M/mm3 (4.2-5.4); White Blood Count 3.6 K/mm3 (4.4-11.0)
[2025-02-03 11:19] LABS: AST(SGOT) 24 U/L (<=31); Alanine Aminotransfer ALT/SGPT 23 U/L (<=34); Albumin, Serum 4.4 g/dL (3.4-4.8); Alkaline Phosphatase 78 U/L (35-104); Anion Gap 10 (5-15); BUN 11 mg/dL (4-19); BUN/Creat Ratio 13.6 RATIO (10-20); Calcium,Total 9.5 mg/dL (7.6-11.0); Carbon Dioxide 27.8 mmol/L (21.0-32.0); Chloride 92 mmol/L (98-108); Cholesterol 140 mg/dL (<=200); Globulin 2.4 g/dL (2.2-4.2); Glucose 93 mg/dL (70-99); Low Density Lipoprotein Calc. 69 mg/dL; Potassium 3.8 mmol/L (3.3-5.1); Triglycerides 74 mg/dL; Very Low Density Lipoprotein 15 mg/dL (5-40); Vitamin D,25 Hydroxy 77.1 ng/mL (30-100); cholesterol:hdl ratio screen 2.48
[2025-02-04 07:07] LABS: CRP, High Sensitivity 0.98 mg/L (0.00-3.00)
== END | disposition home or self-care (01) ==
LOC: MTLAB 07:10
PROVIDERS: PCP Nurse Practitioner Family; Referring Provider Nurse Practitioner Family; Visit Provider Nurse Practitioner Family
DX: I10 Essential (primary) hypertension (principal); E55.9 Vitamin D deficiency, unspecified; E78.5 Hyperlipidemia, unspecified; R73.01 Impaired fasting glucose; Z82.49 Family history of ischemic heart disease and other diseases of the circulatory system
CPT/HCPCS: 36415; 80053; 80061; 82306; 83036; 83525; 85025; 86141

== ENCOUNTER → 2025-03-04 | Outpatient (CLI) | payer MEDICARE, SELFPAY ==
--- NOTE | 2025-03-04 11:03 | BI_ITS ---
EXAM: SCRN MAMM (CAD)W/HOLLAND BILAT DATE: 03/04/2025 CLINICAL HISTORY: F, Age 70 y/o , SCREEN TECHNIQUE: Procedure Code: [id number] Modality: MG Procedure: SCRN MAMM (CAD)W/HOLLAND BILAT COMPARISON: Prior exam(s) dated 03/01/2024, 02/25/2023, 03/06/2022. FINDINGS: TISSUE DENSITY: There are scattered areas of fibroglandular density. Bilateral Breast Mammographic Findings: No significant masses, calcifications or other abnormalities are identified. BI/SCRN MAMM (CAD)W/HOLLAND BILAT IMPRESSION: There is no mammographic evidence of malignancy. OVERALL FINAL ASSESSMENT BI-RADS 1: NEGATIVE. RECOMMENDATION: Routine annual follow-up in 1 Year Additional Recommendation none A letter with findings and recommendations will be mailed to the patient. Reading Location: [id number]
== END | disposition home or self-care (01) ==
LOC: OPBI 11:01
PROVIDERS: PCP Nurse Practitioner Family; Referring Provider Nurse Practitioner Family; Visit Provider Nurse Practitioner Family
DX: Z12.31 Encounter for screening mammogram for malignant neoplasm of breast (principal)
CPT/HCPCS: 77063; 77067

== ENCOUNTER → 2025-03-15 | Outpatient (CLI) | payer MEDICARE, SELFPAY ==
--- NOTE | 2025-03-15 10:59 | BD_ITS ---
PROCEDURE: Postmenopausal 03/15/2025 REASON FOR EXAM: F, age 70 y/o . Patient is postmenopausal TECHNIQUE: Procedure Code: BDDBD Modality: DX Procedure: DEXA BONE DENSITY STUDY COMPARISON: None FINDINGS: BMD and T-SCORES Lumbar spine: 0.882 g/cm2, T-score -1.5 Levels: L1 through L4 Left femoral neck: 0.692 g/cm2, T-score -1.4 Left total hip: 0.825 g/cm2, T-score -1.0 Right femoral neck: 0.620 g/cm2, T-score -2.1 Right total hip: 0.803 g/cm2, T-score -1.1 The World Health Organization has defined the following categories based on bone density: Normal bone density: T-score equal to or greater than -1.0 Osteopenia: T-score between -1.0 and -2.5 Osteoporosis: T-score equal to or less than -2.5 FRAX (or Comparable) Fracture Risk Assessment: 10 Year Probability of Fracture: Major Osteoporotic Fracture: 12% Hip Fracture: 2.2% (Note: FRAX is not to be reported in setting of normal range bone density, osteoporosis on DEXA, known history of osteoporosis, prior osteoporotic hip or vertebral fracture, or for any patient undergoing pharmacological treatment for bone loss.) The National Osteoporosis Foundation (NOF) recommends pharmacological treatment for patients with a FRAX 10-year risk of 3% or higher for a hip fracture, or 20% or higher for a major osteoporotic fracture, to prevent osteoporosis and reduce fracture risk. The patient does meet the pharmacological treatment recommendations for prevention of osteoporosis. BD/Dexa Bone Density Study IMPRESSION: OSTEOPENIA. Recommend follow-up 1 year Reading Location: [id number]
== END | disposition home or self-care (01) ==
LOC: OPBD 10:55
PROVIDERS: PCP Nurse Practitioner Family; Referring Provider Nurse Practitioner Family; Visit Provider Nurse Practitioner Family
DX: Z13.820 Encounter for screening for osteoporosis (principal); Z78.0 Asymptomatic menopausal state
CPT/HCPCS: 77080